=== PATIENT | female | born 1955 | race Caucasian/White ===

== ENCOUNTER 2016-10-29 12:11 | Outpatient (CLI) | payer BC | END 2016-10-29 23:59 | DX: R10.11 Right upper quadrant pain (principal); R11.0 Nausea ==

== ENCOUNTER 2016-10-30 18:59 | Outpatient (CLI) | payer BC | END 2016-10-30 19:00 | disposition home or self-care (01) | DX: R10.11 Right upper quadrant pain (principal) ==

== ENCOUNTER 2017-02-25 12:09 | Outpatient (CLI) | payer BC ==
[2017-02-25 14:28] LABS: BASOPHILS % (AUTO) 0.6 %; EOSINOPHILS # (AUTO) 0.4 10^3/uL (0.0-0.7); EOSINOPHILS % (AUTO) 7.8 %; HCT - HEMATOCRIT 38.9 % (37.0-47.0); HGB - HEMOGLOBIN 13.2 g/dL (12.0-16.0); LYMPHOCYTES # (AUTO) 2.1 10^3/uL (1.5-3.5); LYMPHOCYTES % (AUTO) 36.2 %; MEAN CORPUSCULAR HEMOGLOBIN 33.1 pg (27.0-31.0); MEAN CORPUSCULAR HGB CONC 33.9 g/dL (32.0-36.0); MEAN CORPUSCULAR VOLUME 97.7 fL (81.0-99.0); MEAN PLATELET VOLUME 7.3 fL (7.9-10.8); MONOCYTES # (AUTO) 0.5 10^3/uL (0.0-1.0); MONOCYTES % (AUTO) 8.7 %; NEUTROPHILS # (AUTO) 2.7 10^3/uL (1.5-6.6); NEUTROPHILS % (AUTO) 46.7 %; RED BLOOD COUNT 3.99 10^6/uL (4.20-5.40); RED CELL DISTRIBUTION WIDTH 13.2 % (12.0-15.0); UNCORRECTED WHITE BLOOD COUNT 5.7 x10^3/uL; WHITE BLOOD COUNT 5.7 x10^3/uL (4.8-10.8)
[2017-02-25 14:45] LABS: ALBUMIN/GLOBULIN RATIO 1.5 (1.0-2.2); BILIRUBIN,TOTAL 0.6 mg/dL (0.2-1.0); BUN - BLOOD UREA NITROGEN 22 mg/dL (6-20); CALCIUM 8.8 mg/dL (8.5-10.3); CARBON DIOXIDE - CO2 25 mmol/L (21-32); CHLORIDE 107 mmol/L (101-111); CREATININE 0.8 mg/dL (0.4-1.0); GFR - MDRD 73 (>89); GLUCOSE 139 mg/dL (70-100); POTASSIUM 3.7 mmol/L (3.5-5.0); SODIUM 140 mmol/L (135-145)
== END 2017-02-25 12:10 | disposition home or self-care (01) ==
LOC: LAB.R 12:09
PROVIDERS: ATTEND Physician Assistant Medical
DX: M79.1 Myalgia (principal); Z79.899 Other long term (current) drug therapy
CPT/HCPCS: 80053; 82550; 85025; 85651; 86140

== ENCOUNTER 2017-02-25 12:23 | Outpatient (CLI) | payer BC ==
--- NOTE | 2017-02-25 15:30 | XRAY Report ---
LEFT HIP AND PELVIS: 02/25/2017 CLINICAL INDICATION: Pain. FINDINGS: Frontal view of the hips and pelvis and frogleg lateral view of the left hip demonstrate n o evidence of fracture or dislocation. Mild left hip osteoarthritis is present. No radiopaque foreign body is seen in the soft tissues. IMPRESSION: MILD LEFT HIP OSTEOARTHRITIS. JOB #: [id number] EXT JOB #:[id number]
== END 2017-02-25 12:24 | disposition home or self-care (01) ==
LOC: DI 12:23
PROVIDERS: ATTEND Physician Assistant Medical
DX: M16.12 Unilateral primary osteoarthritis, left hip (principal); M79.1 Myalgia; Z79.899 Other long term (current) drug therapy
CPT/HCPCS: 80053; 82550; 85025; 85651; 86140

== ENCOUNTER 2017-08-11 15:12 | Outpatient (CLI) | payer BC ==
[2017-08-11 15:54] LABS: ALBUMIN/GLOBULIN RATIO 1.4 (1.0-2.2); BILIRUBIN,TOTAL 0.5 mg/dL (0.2-1.0); BUN - BLOOD UREA NITROGEN 22 mg/dL (6-20); CALCIUM 9.1 mg/dL (8.5-10.3); CARBON DIOXIDE - CO2 24 mmol/L (21-32); CHLORIDE 104 mmol/L (101-111); CHOL/HDL RATIO 3.2 (<4.4); CHOLESTEROL 191 mg/dL; CREATININE 0.7 mg/dL (0.4-1.0); GFR - MDRD 85 (>89); GLUCOSE 115 mg/dL (70-100); HDL CHOLESTEROL 60 mg/dL; LDL/HDL RATIO 1.6 (<4.4); POTASSIUM 3.9 mmol/L (3.5-5.0); SODIUM 138 mmol/L (135-145); TRIGLYCERIDES 192 mg/dL; VLDL CHOLESTEROL 38 mg/dL
[2017-08-11 15:59] LABS: BASOPHILS % (AUTO) 0.4 %; EOSINOPHILS # (AUTO) 0.2 10^3/uL (0.0-0.7); EOSINOPHILS % (AUTO) 3.4 %; HCT - HEMATOCRIT 38.3 % (37.0-47.0); HGB - HEMOGLOBIN 13.4 g/dL (12.0-16.0); LYMPHOCYTES # (AUTO) 2.5 10^3/uL (1.5-3.5); LYMPHOCYTES % (AUTO) 37.2 %; MEAN CORPUSCULAR HEMOGLOBIN 33.7 pg (27.0-31.0); MEAN CORPUSCULAR VOLUME 96.2 fL (81.0-99.0); MEAN PLATELET VOLUME 6.7 fL (7.9-10.8); MONOCYTES # (AUTO) 0.6 10^3/uL (0.0-1.0); MONOCYTES % (AUTO) 8.7 %; NEUTROPHILS # (AUTO) 3.4 10^3/uL (1.5-6.6); NEUTROPHILS % (AUTO) 50.3 %; NUCLEATED RED BLOOD CELLS AUTO 0.1 /100WBC; RED BLOOD COUNT 3.99 10^6/uL (4.20-5.40); RED CELL DISTRIBUTION WIDTH 12.9 % (12.0-15.0); UNCORRECTED WHITE BLOOD COUNT 6.7 x10^3/uL; WHITE BLOOD COUNT 6.7 x10^3/uL (4.8-10.8)
== END 2017-08-11 15:13 | disposition home or self-care (01) ==
LOC: LAB 15:12
PROVIDERS: ATTEND Physician Assistant Medical
DX: Z00.00 Encounter for general adult medical examination without abnormal findings (principal); E55.9 Vitamin D deficiency, unspecified; Z79.899 Other long term (current) drug therapy
CPT/HCPCS: 36415; 80053; 80061; 82306; 84443; 85025

== ENCOUNTER 2017-08-14 08:14 | Outpatient (CLI) | payer BC ==
--- NOTE | 2017-08-14 16:42 | Nuclear Medicine Report ---
EXAM: BONE SCAN EXAM DATE: 08/14/2017 01:57 PM. CLINICAL HISTORY: Pain in ribs, breast cancer/osteopenia. COMPARISON: Chest with bilateral rib views, 07/01/2017. Pelvic x-rays 02/25/2017. TECHNIQUE: Following the intravenous administration of 31.2 mCi of technetium 99m MDP and an appropri ate delay, a whole-body scan was performed in anterior and posterior projections. Site-specific spot views of the region of interest were obtained in various projections. FINDINGS: Exam Quality: Normal overall osseous radiotracer uptake. Physiological tracer uptake in bilateral col lecting systems. Skull: No focal uptake. Thorax: No focal lesions in ribs or sternum. Pelvis: No focal lesions. Spine: Moderately increased tracer uptake in the L3-L4 endplates suggestive of osteoarthritis, visibl e on the pelvic x-ray of 02/25/2017. Minimally increased tracer uptake in both knees consistent with osteoarthritis. IMPRESSION: 1. No foci of abnormal tracer uptake to suggest metastatic disease. 2. 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 [facility] Referring Provider Line: [phone] SITE ID: [id number]
--- NOTE | 2017-08-19 08:38 | DEXA Report ---
DEXA SCAN : 08/14/2017 HISTORY: Breast cancer, on anti-estrogen therapy. TECHNIQUE: Dual energy x-ray absorptiometry (DXA) was performed on a [employer] system. Regions measured are the AP spine, femoral neck, and, if needed, forearm. COMPARISON: [None]. In accordance with the International Society for Clinical Densitometry (ISCD) guidelines, data from previous exams may be reanalyzed using current recommendations and techniques. This is done to allow a more accurate basis for comparison with the current study. FINDINGS: The data for the lumbar spine is as follows: REGION BMD (g/cm/cm) T-SCORE Z-SCORE L1 1.045 -0.7 0.4 L2 1.052 -1.2 -0.2 L3 1.226 0.2 1.3 L4 1.206 0.0 1.1 TOTAL 1.139 -0.3 0.7 NOTE: All evaluable vertebrae are used for classification. The data for the hip is as follows: REGION BMD (g/cm/cm) T-SCORE Z-SCORE Neck 1.038 0.0 1.1 TOTAL 1.033 0.2 1.0 NOTE: The femoral neck or total proximal femur, whichever is lowest, is used for classification. IMPRESSION: THE WHO CLASSIFICATION BASED ON THE INTERNATIONAL REFERENCE STANDARD: NORMAL FRACTURE RISK: NOT INCREASED. RECOMMENDATION: Patients with diagnosis of osteoporosis or osteopenia should have regular bone mineral density assessment. For those eligible for Medicare, routine testing is allowed once every 2 years. Testing frequency can be increased for patients who have rapidly progressing disease or for those who are receiving medical therapy to restore bone mass. COMMENT: World Health Organization (WHO) definitions for osteoporosis and osteopenia: NORMAL BMD: T-score at -1.0 or higher, fracture risk is low. OSTEOPENIA BMD: T-score between -1.0 and -2.5, fracture risk is increased. OSTEOPOROSIS BMD: T-score at -2.5 or lower, fracture risk high. National Osteoporosis Foundation recommends: 1. Obtain adequate dietary calcium (at least 1200 mg per day) and vitamin D (400 -800 international units per day). 2. Participate, as appropriate, in regular weight bearing and muscle- strengthening exercise. 3. Avoid tobacco use and reduce alcohol and caffeine intake. 4. For more detailed information see the website at www.NOF.org. MTDD
== END 2017-08-14 08:15 | disposition home or self-care (01) ==
LOC: DI 08:14
PROVIDERS: ATTEND Internal Medicine Hematology & Oncology
DX: R07.81 Pleurodynia (principal); M85.80 Other specified disorders of bone density and structure, unspecified site; Z79.899 Other long term (current) drug therapy; C50.911 Malignant neoplasm of unspecified site of right female breast
CPT/HCPCS: 77080; 78306; A9503

== ENCOUNTER 2017-09-04 08:00 | Outpatient (CLI) | payer BC | END 2017-09-04 08:01 | disposition home or self-care (01) | LOC: LAB.R 08:00 | PROVIDERS: ATTEND Internal Medicine | DX: R35.0 Frequency of micturition (principal) | CPT/HCPCS: 87086 ==

== ENCOUNTER 2017-09-09 06:12 | Outpatient (CLI) | payer BC ==
[2017-09-09] MEDS ORDERED: IOPAMIDOL-300 100 ML VIAL ONE (06:28)
[2017-09-09] MEDS ORDERED: IOPAMIDOL-300 50 ML VIAL ONE (06:29)
[2017-09-09] MEDS ORDERED: IOPAMIDOL-300 100 ML VIAL IVP ONE (07:55)
[2017-09-09] MEDS ORDERED: IOPAMIDOL-300 50 ML VIAL PO ONE (07:55)
--- NOTE | 2017-09-09 12:14 | CT Report ---
DATE OF SERVICE: 09/09/2017 CT OF ABDOMEN AND PELVIS WITH AND WITHOUT CONTRAST: 09/09/2017 CLINICAL INDICATION: Pain, urinary frequency. TECHNIQUE: Axial CT images of the abdomen and pelvis were obtained prior to and following 100 mL Isovue 300 intravenously. Oral contrast was administered. No previous CT is available for comparison. FINDINGS: Limited evaluation of the lung bases is unremarkable. ABDOMEN: On the unenhanced images, there is no evidence of nephrolithiasis or hydronephrosis. The kidneys demonstrate symmetric enhancement. The liver, spleen, pancreas and adrenal glands are unremarkable. The gallbladder is not dilated. No bowel dilatation, free gas, or free fluid is present. No abdominal adenopathy is present. PELVIS: The pelvic organs appear unremarkable. No pelvic adenopathy or free fluid is present. Osseous structures demonstrate mild degenerative changes. IMPRESSION: NO EVIDENT ETIOLOGY FOR PATIENT'S PAIN AND URINARY FREQUENCY. In accordance with CT protocol optimization, one or more of the following dose reduction techniques were utilized for this exam: automated exposure control, adjustment of mA and/or KV based on patient size, or use of iterative reconstructive technique. TD: 09/09/2017 13:14
== END 2017-09-09 06:13 | disposition home or self-care (01) ==
LOC: DI 06:12
PROVIDERS: ATTEND Internal Medicine
DX: R35.0 Frequency of micturition (principal); R10.9 Unspecified abdominal pain
CPT/HCPCS: 74178; Q9967

== ENCOUNTER 2018-02-03 08:00 | Outpatient (CLI) | payer BC | END 2018-02-03 08:01 | disposition home or self-care (01) | LOC: LAB.R 08:00 | PROVIDERS: ATTEND Physician Assistant Medical | DX: N30.00 Acute cystitis without hematuria (principal) | CPT/HCPCS: 87086; 87181 ==

== ENCOUNTER 2018-02-26 09:14 | Outpatient (CLI) | payer BC ==
--- NOTE | 2018-02-26 13:06 | Ultrasound Report ---
Procedure Date: 02/26/2018 Accession Number: [id number] / [id number] Procedure: US - Pelvic w/Transvaginal CPT Code: FULL RESULT: EXAM: Pelvic w/Transvaginal DATE: 02/26/2018 10:43 AM CLINICAL HISTORY: ACUTE FEMALE PELVIC PAIN COMPARISON: CT 09/09/2017 TECHNIQUE: Realtime transabdominal imaging performed to identify the uterus and adnexa and as an overview of other pelvic structures, followed by transvaginal imaging for better assessment of the endometrium and/or adnexa, with static image documentation. FINDINGS: Uterus: 7.2 x 4.3 x 3.2 cm, volume 52 cc. Retroverted position. Heterogeneous myometrium. Masses: 1.8 cm leiomyoma in the left myometrium. Endometrium: 8 mm. Heterogeneous. Thickened for a postmenopausal patient. Cervix: Unremarkable. Right Ovary/Adnexa: 2.3 x 2.0 x 1.6 cm, volume 4 cc. Normal echotexture. Blood flow is present. No adnexal mass is seen. Left Ovary/Adnexa: 2.3 x 1.7 x 1.1 cm, volume 2 cc. Normal echotexture. Blood flow is present. No adnexal mass is seen. Free Fluid: None. Other: None. IMPRESSION: Leiomyomatous uterus. Thickened endometrium for a postmenopausal patient. [facility]
== END 2018-02-26 09:15 | disposition home or self-care (01) ==
LOC: DI 09:14
PROVIDERS: ATTEND Physician Assistant Medical
DX: D25.9 Leiomyoma of uterus, unspecified (principal); R93.8 Abnormal findings on diagnostic imaging of other specified body structures
CPT/HCPCS: 76830; 76856

== ENCOUNTER 2018-03-24 08:00 | Outpatient (CLI) | payer BC | END 2018-03-24 08:01 | disposition home or self-care (01) | LOC: LAB.R 08:00 | PROVIDERS: ATTEND Internal Medicine | DX: R19.7 Diarrhea, unspecified (principal) | CPT/HCPCS: 81599; 82705; 83630; 87045; 87046; 87177; 87209; 87329; 87493 ==

== ENCOUNTER 2018-08-02 07:29 | Outpatient (CLI) | payer BC ==
[2018-08-02 08:08] LABS: BASOPHILS % (AUTO) 0.6 %; EOSINOPHILS # (AUTO) 0.2 10^3/uL (0.0-0.7); EOSINOPHILS % (AUTO) 5.3 %; HGB - HEMOGLOBIN 13.7 g/dL (12.0-16.0); LYMPHOCYTES # (AUTO) 1.9 10^3/uL (1.5-3.5); LYMPHOCYTES % (AUTO) 41.9 %; MEAN CORPUSCULAR HEMOGLOBIN 33.8 pg (27.0-31.0); MEAN CORPUSCULAR HGB CONC 35.1 g/dL (32.0-36.0); MEAN CORPUSCULAR VOLUME 96.2 fL (81.0-99.0); MEAN PLATELET VOLUME 6.6 fL (7.9-10.8); MONOCYTES # (AUTO) 0.5 10^3/uL (0.0-1.0); MONOCYTES % (AUTO) 10.6 %; NEUTROPHILS # (AUTO) 1.9 10^3/uL (1.5-6.6); NEUTROPHILS % (AUTO) 41.6 %; PLT - PLATELET COUNT 269 10^3/uL (130-450); RED BLOOD COUNT 4.05 10^6/uL (4.20-5.40); RED CELL DISTRIBUTION WIDTH 12.6 % (12.0-15.0); WHITE BLOOD COUNT 4.5 x10^3/uL (4.8-10.8)
[2018-08-02 08:09] LABS: ALBUMIN 4.3 g/dL (3.2-5.5); ALBUMIN/GLOBULIN RATIO 1.4 (1.0-2.2); ALKALINE PHOSPHATASE 64 IU/L (42-121); ALT ALANINE AMINOTRANSFERASE 15 IU/L (10-60); AST ASPARTATE AMINOTRANSFERASE 18 IU/L (10-42); BILIRUBIN,TOTAL 0.7 mg/dL (0.2-1.0); BUN - BLOOD UREA NITROGEN 18 mg/dL (6-20); CARBON DIOXIDE - CO2 29 mmol/L (21-32); CHLORIDE 103 mmol/L (101-111); CHOL/HDL RATIO 4.3 (<4.4); CHOLESTEROL 244 mg/dL; CREATININE 0.7 mg/dL (0.4-1.0); GFR - MDRD 85 (>89); GLUCOSE 102 mg/dL (70-100); HDL CHOLESTEROL 57 mg/dL; LDL CHOLESTEROL,CALCULATED 163 mg/dL; LDL/HDL RATIO 2.9 (<4.4); SODIUM 135 mmol/L (135-145); TOTAL PROTEIN 7.4 g/dL (6.7-8.2); VLDL CHOLESTEROL 24 mg/dL
== END 2018-08-02 07:30 | disposition home or self-care (01) ==
LOC: LAB 07:29
PROVIDERS: ATTEND Physician Assistant Medical
DX: Z00.00 Encounter for general adult medical examination without abnormal findings (principal)
CPT/HCPCS: 36415; 80053; 80061; 83721; 84443; 85025

== ENCOUNTER 2018-08-02 13:15 | Outpatient (CLI) | payer BC | END 2018-08-02 13:16 | disposition home or self-care (01) | LOC: SC 13:15 | PROVIDERS: ATTEND Internal Medicine Pulmonary Disease | DX: G47.33 Obstructive sleep apnea (adult) (pediatric) (principal) | CPT/HCPCS: 99212; 99213 ==

== ENCOUNTER 2018-08-10 11:56 | Outpatient (CLI) | payer BC ==
--- NOTE | 2018-08-11 01:25 | CT Report ---
Reason: HEADACHE,NAUSEA,HISTORY OF BREAST CANCER Procedure Date: 08/10/2018 Accession Number: [id number] / [id number] Procedure: CT - Head W/O CPT Code: FULL RESULT: EXAM: CT HEAD EXAM DATE: 08/10/2018 12:17 PM. CLINICAL HISTORY: Headache, nausea, history of breast cancer. COMPARISON: SINUSES 01/09/2014 6:11 PM, HEAD W/O 01/09/2014 6:09 PM. TECHNIQUE: Multiaxial CT images were obtained from the foramen magnum to the vertex. Reformats: Sagittal and coronal. IV contrast: None. In accordance with CT protocol optimization, one or more of the following dose reduction techniques were utilized for this exam: automated exposure control, adjustment of mA and/or KV based on patient size, or use of iterative reconstructive technique. FINDINGS: Parenchyma: No intraparenchymal hemorrhage. No evidence of mass, midline shift or CT findings of acute infarction. Seals-white differentiation is distinct. Diffuse mild chronic microangiopathic white matter changes are evident. Extraaxial Spaces: Normal for age. No subdural or epidural collections identified. Ventricles: The ventricles and cortical sulci are enlarged, consistent with age-related tissue loss. Sinuses: Imaged paranasal sinuses, orbits, and mastoids show no significant abnormality with exception of pansinus mild mucosal thickening and evidence of prior sinus surgery. Bones: No evidence of fracture or calvarial defect. Other: None. IMPRESSION: 1. Mild senescent changes without evidence of acute intracranial abnormality. 2. Chronic appearing pansinus disease. [facility]
== END 2018-08-10 11:57 | disposition home or self-care (01) ==
LOC: DI 11:56
PROVIDERS: ATTEND Physician Assistant Medical
DX: J32.4 Chronic pansinusitis (principal); R51 Headache
CPT/HCPCS: 70450

== ENCOUNTER 2018-08-26 16:50 | Outpatient (CLI) | payer BC ==
[2018-08-26 17:50] LABS: BASOPHILS % (AUTO) 0.7 %; BILIRUBIN,URINE NEGATIVE (NEGATIVE); EOSINOPHILS # (AUTO) 0.2 10^3/uL (0.0-0.7); GLUCOSE, URINE (UA) NEGATIVE (NEGATIVE); HGB - HEMOGLOBIN 13.4 g/dL (12.0-16.0); KETONES,URINE (UA) NEGATIVE (NEGATIVE); LEUKOCYTE ESTERASE, URINE NEGATIVE (NEGATIVE); LYMPHOCYTES # (AUTO) 2.4 10^3/uL (1.5-3.5); LYMPHOCYTES % (AUTO) 40.3 %; MEAN CORPUSCULAR HEMOGLOBIN 33.1 pg (27.0-31.0); MEAN CORPUSCULAR HGB CONC 33.7 g/dL (32.0-36.0); MEAN CORPUSCULAR VOLUME 98.2 fL (81.0-99.0); MEAN PLATELET VOLUME 6.4 fL (7.9-10.8); MONOCYTES # (AUTO) 0.6 10^3/uL (0.0-1.0); MONOCYTES % (AUTO) 9.6 %; NEUTROPHILS # (AUTO) 2.8 10^3/uL (1.5-6.6); NEUTROPHILS % (AUTO) 46.4 %; NITRITE,URINE NEGATIVE (NEGATIVE); OCCULT BLOOD,URINE NEGATIVE (NEGATIVE); PLT - PLATELET COUNT 294 10^3/uL (130-450); PROTEIN,URINE NEGATIVE (NEGATIVE); RED BLOOD COUNT 4.06 10^6/uL (4.20-5.40); RED CELL DISTRIBUTION WIDTH 12.6 % (12.0-15.0); UROBILINOGEN,URINE 0.2 (NORMAL) E.U./dL (NORMAL)
[2018-08-26 18:17] LABS: BACTERIA,URINE Rare /HPF (None Seen); CLARITY,URINE CLEAR (CLEAR); RBC,URINE 0-5 /HPF (0-5); SQUAMOUS EPITHELIAL CELL,UR RARE Squamous (<= Few)
[2018-08-26 21:30] LABS: RHEUMATOID FACTOR NEGATIVE (Negative)
--- NOTE | 2018-08-27 07:26 | XRAY Report ---
Reason: DYSPNEA Procedure Date: 08/26/2018 Accession Number: [id number] / [id number] Procedure: XR - Chest 2 View X-Ray CPT Code: 49925 FULL RESULT: EXAM: CHEST RADIOGRAPHY EXAM DATE: 08/26/2018 05:06 PM. CLINICAL HISTORY: DYSPNEA. COMPARISON: None. TECHNIQUE: 2 views. FINDINGS: Lungs/Pleura: No focal opacities evident. No pleural effusion. No pneumothorax. Normal volumes. Mediastinum: Heart and mediastinal contours are unremarkable. IMPRESSION: Negative 2-view chest radiography. [facility]
[2018-08-28 11:42] LABS: ANA SCREEN NEGATIVE (NEGATIVE)
== END 2018-08-26 16:51 | disposition home or self-care (01) ==
LOC: DI 16:50
PROVIDERS: ATTEND Physician Assistant Medical
DX: R06.00 Dyspnea, unspecified (principal); M25.50 Pain in unspecified joint; R53.83 Other fatigue; M79.10 Myalgia, unspecified site; R11.0 Nausea
CPT/HCPCS: 36415; 71046; 81001; 85025; 85651; 86038; 86140; 86200; 86430; 87086

== ENCOUNTER 2018-09-28 08:00 | Outpatient (CLI) | payer BC | END 2018-09-28 23:59 | disposition home or self-care (01) | LOC: LAB.R 08:00 | PROVIDERS: ATTEND Physician Assistant Medical | DX: N30.00 Acute cystitis without hematuria (principal) | CPT/HCPCS: 87086 ==

== ENCOUNTER 2018-10-05 14:24 | Outpatient (CLI) | payer BC | END 2018-10-05 14:25 | disposition home or self-care (01) | LOC: SC 14:24 | PROVIDERS: ATTEND Internal Medicine Pulmonary Disease | DX: G47.33 Obstructive sleep apnea (adult) (pediatric) (principal) | CPT/HCPCS: 99212; 99213 ==

== ENCOUNTER 2019-06-29 08:36 | Day surgery (SDC) | payer BC ==
[2019-06-29] MEDS ORDERED: MIDAZOLAM 2 MG/2 ML VIAL IVP ONE (08:37)
[2019-06-29] MEDS ORDERED: fentaNYL 250 MCG/5 ML VIAL IVP ONE (08:37)
[2019-06-29] MEDS ORDERED: LACTATED RINGERS 1,000 ML IV ONE (08:41)
[2019-06-29] MEDS ORDERED: LIDO GARGLE 30 ML BOTTLE ONE (10:13)
[2019-06-29] MEDS ORDERED: BENZOCAINE/TETRACAINE/BUTAMBEN 20 GM MM ONE (10:27)
[2019-06-29] MEDS ORDERED: LIDO GARGLE 30 ML BOTTLE PO ONE (10:46)
[2019-06-29 11:58] VITALS: BP 90/60
== END 2019-06-29 08:37 | disposition home or self-care (01) ==
LOC: SDS 08:36
PROVIDERS: ATTEND Surgery
PROC: 0DB78ZX Excision of Stomach, Pylorus, Via Natural or Artificial Opening Endoscopic, Diagnostic (ICD-10-PCS; 2019-06-29)
PROC: 0DB48ZX Excision of Esophagogastric Junction, Via Natural or Artificial Opening Endoscopic, Diagnostic (ICD-10-PCS; 2019-06-29)
PROC: 0DJD8ZZ Inspection of Lower Intestinal Tract, Via Natural or Artificial Opening Endoscopic (ICD-10-PCS; principal; 2019-06-29 10:30)
PROC: 0DB98ZX Excision of Duodenum, Via Natural or Artificial Opening Endoscopic, Diagnostic (ICD-10-PCS; 2019-06-29 10:30)
DX: Z12.11 Encounter for screening for malignant neoplasm of colon (principal); K57.30 Diverticulosis of large intestine without perforation or abscess without bleeding; K64.8 Other hemorrhoids; K21.9 Gastro-esophageal reflux disease without esophagitis; K29.50 Unspecified chronic gastritis without bleeding; K44.9 Diaphragmatic hernia without obstruction or gangrene; Z85.3 Personal history of malignant neoplasm of breast; G47.33 Obstructive sleep apnea (adult) (pediatric)
CPT/HCPCS: 43239; 45378; A9270; J3010; J7120

== ENCOUNTER 2019-08-17 08:12 | Outpatient (CLI) | payer BC ==
--- NOTE | 2019-08-17 12:31 | DEXA Report ---
Reason: POSTMENOPAUSAL Procedure Date: 08/17/2019 Accession Number: [id number] / [id number] Procedure: DEX - Dexa Spine and/or Hip CPT Code: Final Report FULL RESULT: EXAM: Dexa Spine and/or Hip DATE: 08/17/2019 8:31 AM CLINICAL HISTORY: POSTMENOPAUSAL. History of breast cancer with tamoxifen use and chemotherapy. History of prednisone use. TECHNIQUE: Dual energy x-ray absorptiometry (DXA) was performed on a [employer] System. Regions measured are the AP Spine, femoral neck, and if needed forearm. COMPARISON: 08/14/2017 In accordance with the International Society for Clinical Densitometry (ISCD) guidelines, data from previous exams may be reanalyzed using current recommendations and techniques. This is done to allow a more accurate basis for comparison with the current study. FINDINGS: The data for the lumbar spine is as follows: BMD (g/cm/cm) T-SCORE Z-SCORE REGION L1 1.053 -0.6 0.6 L2 1.053 -1.2 0.0 L3 1.433 1.9 3.2 L4 1.450 2.1 3.3 TOTAL 1.264 0.7 1.9 NOTE: All evaluable vertebrae are used for classification The data for the hip is as follows: BMD (g/cm/cm) T-SCORE Z-SCORE REGION Neck 0.994 -0.3 0.9 TOTAL 1.012 0.0 1.0 NOTE: The femoral neck or total proximal femur, whichever is lowest, is used for classification. DXA RESULTS SUMMARY: Spine SCAN DATE AGE BMD CHANGE VS CHANGE VS PREVIOUS PREVIOUS % 08[age]17/2019 64.3 1.264 0.125* 11.0* 08/14/2017 62.3 1.139 * Denotes significant change at the 95% confidence level. Denotes dissimilar scan types or analysis methods. DXA RESULTS SUMMARY: Hip SCAN DATE AGE BMD CHANGE VS CHANGE VS PREVIOUS PREVIOUS % [birth year][age]17/2019 64.3 1.012 -0.021 -2.0 08/14/2017 62.3 1.033 * Denotes significant change at the 95% confidence level. Denotes dissimilar scan types or analysis methods. IMPRESSION: THE WHO CLASSIFICATION BASED ON THE INTERNATIONAL REFERENCE STANDARD IS NORMAL. THE FRACTURE RISK IS NOT INCREASED. RECOMMENDATION: Patients with diagnosis of osteoporosis or osteopenia should have regular bone mineral density assessment. For those eligible for Medicare, routine testing is allowed once every 2 years. Testing frequency can be increased for patients who have rapidly progressing disease or for those who are receiving medical therapy to restore bone mass. COMMENT: World Health Organization (WHO) definitions for osteoporosis and osteopenia: NORMAL BMD: T-score at -1.0 or higher, fracture risk is low OSTEOPENIA BMD: T-score between -1.0 and -2.5, fracture risk is increased. OSTEOPOROSIS BMD: T-score at -2.5 or lower, fracture risk is high. National Osteoporosis Foundation recommends: 1. Obtain adequate dietary calcium (at least 1200 mg per day) and vitamin D (400-800 international units per day). 2. Participate, as appropriate, in regular weightbearing and muscle-strengthening exercise. 3. Avoid tobacco use and reduce alcohol and caffeine intake. 4. For more detailed information see the website at www.NOF.org.
== END 2019-08-17 08:13 | disposition home or self-care (01) ==
LOC: DI 08:12
PROVIDERS: ATTEND Internal Medicine Hematology & Oncology
DX: Z78.0 Asymptomatic menopausal state (principal); C50.912 Malignant neoplasm of unspecified site of left female breast
CPT/HCPCS: 77080

== ENCOUNTER 2019-09-13 17:56 | Outpatient (CLI) | payer BC ==
[2019-09-13 18:33] LABS: BASOPHILS % (AUTO) 0.5 %; EOSINOPHILS # (AUTO) 0.2 10^3/uL (0.0-0.7); EOSINOPHILS % (AUTO) 3.9 %; HGB - HEMOGLOBIN 13.4 g/dL (12.0-16.0); LYMPHOCYTES # (AUTO) 2.4 10^3/uL (1.5-3.5); LYMPHOCYTES % (AUTO) 42.4 %; MEAN CORPUSCULAR HEMOGLOBIN 32.8 pg (27.0-31.0); MEAN CORPUSCULAR HGB CONC 33.7 g/dL (32.0-36.0); MEAN CORPUSCULAR VOLUME 97.3 fL (81.0-99.0); MEAN PLATELET VOLUME 8.5 fL (7.9-10.8); MONOCYTES # (AUTO) 0.8 10^3/uL (0.0-1.0); MONOCYTES % (AUTO) 13.4 %; NEUTROPHILS # (AUTO) 2.2 10^3/uL (1.5-6.6); NEUTROPHILS % (AUTO) 39.3 %; PLT - PLATELET COUNT 268 10^3/uL (130-450); RED BLOOD COUNT 4.09 10^6/uL (4.20-5.40); RED CELL DISTRIBUTION WIDTH 12.4 % (12.0-15.0); WHITE BLOOD COUNT 5.7 x10^3/uL (4.8-10.8)
[2019-09-13 18:42] LABS: CALCIUM 9.3 mg/dL (8.5-10.3)
--- NOTE | 2019-09-13 20:43 | XRAY Report ---
Reason: COUGH, CHRONIC, CHEST WALL PAIN Procedure Date: 09/13/2019 Accession Number: [id number] / [id number] Procedure: XR - Chest 2 View X-Ray CPT Code: 12425 Final Report FULL RESULT: EXAM: CHEST RADIOGRAPHY EXAM DATE: 09/13/2019 06:47 PM. CLINICAL HISTORY: COUGH, CHRONIC, CHEST WALL PAIN. COMPARISON: CHEST 2 VIEW 08/26/2018 5:05 PM. TECHNIQUE: 2 views. FINDINGS: Lungs/Pleura: No focal opacities evident. No peribronchial cuffing or interstitial abnormality. No pleural effusion. No pneumothorax. Normal volumes. Mediastinum: Heart and mediastinal contours are unremarkable. Other: Bilateral breast implants. Left breast surgical clips, as before. IMPRESSION: Normal 2-view chest radiography. [facility]
== END 2019-09-13 17:57 | disposition home or self-care (01) ==
LOC: DI 17:56
PROVIDERS: ATTEND Family Medicine
DX: R05 Cough (principal); R07.89 Other chest pain
CPT/HCPCS: 36415; 71046; 80048; 85025

== ENCOUNTER 2019-10-20 09:42 | Outpatient (CLI) | payer BC ==
--- NOTE | 2019-10-20 13:30 | MRI Report ---
Reason: HEADACHE Procedure Date: 10/20/2019 Accession Number: [id number] / [id number] Procedure: MRI - Brain W/O CPT Code: Final Report FULL RESULT: EXAM: MRI BRAIN WITHOUT CONTRAST EXAM DATE: 10/20/2019 11:05 AM. CLINICAL HISTORY: Headache. History of breast cancer. COMPARISON: BRAIN W/WO 04/03/2016 9:00 AM. TECHNIQUE: Multiplanar, multisequence T1-weighted and fluid-sensitive MR sequences of the brain were performed. Sequences optimized for routine evaluation. Other: None. IV Contrast: None. FINDINGS: Brain Volume: Normal for age. Parenchyma/Dura: No mass, acute infarct or hemorrhage. Again seen are findings of numerous scattered patchy and nodular foci of white matter T2 hyperintensity in the cerebral hemispheres, findings are similar to prior, likely secondary to aging and chronic small vessel ischemic disease. Postinflammatory gliosis might also be considered. Given gross stability, a new or progressive neoplastic process is considered less likely though complete evaluation with MRI could include evaluation post contrast. No mass-effect, midline shift or abnormal subdural fluid collection. Ventricles/Cisterns: No hydrocephalus. No abnormal extra-axial fluid collection or hemorrhage. Orbits: Symmetric and unremarkable. Sella Turcica: No developing space-occupying lesion. IAC: Grossly symmetric and unremarkable contours of the internal auditory canals allowing for the inherent limitations of noncontrast imaging technique. Vasculature: The major arterial skull base flow voids are present. Sinuses: Mild pansinus mucosal thickening. Significantly less prominent left maxillary sinus mucosal thickening. The mastoids are grossly clear. Bones: No focal pathologic appearing marrow signal changes. Other: None. IMPRESSION: 1. No new or acute intracranial abnormality. 2. Essentially stable moderate multifocal white matter disease, T2 hyperintense signal changes are nonspecific but likely attributable to aging and chronic microangiopathy. 3. Mild pansinus mucosal thickening but the left maxillary sinus mucosal thickening has improved. [facility]
== END 2019-10-20 09:43 | disposition home or self-care (01) ==
LOC: DI 09:42
PROVIDERS: ATTEND Internal Medicine Hematology & Oncology
DX: R51 Headache (principal); R90.82 White matter disease, unspecified; J34.89 Other specified disorders of nose and nasal sinuses; Z85.3 Personal history of malignant neoplasm of breast
CPT/HCPCS: 70551

== ENCOUNTER 2020-03-09 10:47 | Outpatient (CLI) | payer BC ==
[2020-03-09 11:03] LABS: BASOPHILS % (AUTO) 0.7 %; EOSINOPHILS # (AUTO) 0.2 10^3/uL (0.0-0.7); EOSINOPHILS % (AUTO) 4.4 %; LYMPHOCYTES # (AUTO) 1.9 10^3/uL (1.5-3.5); LYMPHOCYTES % (AUTO) 34.7 %; MEAN CORPUSCULAR HGB CONC 33.3 g/dL (32.0-36.0); MEAN CORPUSCULAR VOLUME 99.1 fL (81.0-99.0); MEAN PLATELET VOLUME 8.5 fL (7.9-10.8); MONOCYTES # (AUTO) 0.4 10^3/uL (0.0-1.0); MONOCYTES % (AUTO) 7.1 %; NEUTROPHILS # (AUTO) 2.9 10^3/uL (1.5-6.6); NEUTROPHILS % (AUTO) 52.7 %; PLT - PLATELET COUNT 249 10^3/uL (130-450); RED BLOOD COUNT 4.24 10^6/uL (4.20-5.40); RED CELL DISTRIBUTION WIDTH 12.8 % (12.0-15.0); WHITE BLOOD COUNT 5.5 x10^3/uL (4.8-10.8)
[2020-03-09 11:28] LABS: ALBUMIN 4.5 g/dL (3.2-5.5); ALBUMIN/GLOBULIN RATIO 1.6 (1.0-2.2); BILIRUBIN,TOTAL 0.9 mg/dL (0.2-1.0); CALCIUM 9.6 mg/dL (8.5-10.3); CREATININE 0.8 mg/dL (0.4-1.0); TOTAL PROTEIN 7.3 g/dL (6.7-8.2)
[2020-03-09 11:39] LABS: FERRITIN 46.1 ng/mL (11.0-306.8)
== END 2020-03-09 10:48 | disposition home or self-care (01) ==
LOC: LAB 10:47
PROVIDERS: ATTEND Nurse Practitioner Family
DX: L29.8 Other pruritus (principal)
CPT/HCPCS: 36415; 80053; 82607; 82728; 83540; 84466; 85025

== ENCOUNTER 2020-06-19 17:07 | Outpatient (CLI) | payer MEDICARE, BC | END 2020-06-19 17:08 | disposition home or self-care (01) | LOC: COV 17:07 | PROVIDERS: ATTEND Family Medicine | DX: R06.02 Shortness of breath (principal); M79.10 Myalgia, unspecified site; R53.83 Other fatigue; R68.83 Chills (without fever); J02.9 Acute pharyngitis, unspecified; R09.81 Nasal congestion; R11.2 Nausea with vomiting, unspecified; Z20.828 Contact with and (suspected) exposure to other viral communicable diseases ==

== ENCOUNTER 2020-07-05 08:45 | Outpatient (CLI) | payer MEDICARE, OTHER ==
[2020-07-05] MEDS ORDERED: GADOBUTROL 7.5 MMOL/7.5 ML VIAL ONE (09:29)
[2020-07-05] MEDS ORDERED: GADOBUTROL 7.5 MMOL/7.5 ML VIAL IVP ONE (12:08)
--- NOTE | 2020-07-05 12:13 | MRI Report ---
PROCEDURE: Brain W/WO INDICATIONS: COGNITIVE DYSFUNCTION, HEADACHES, HX OF BREAST CA CONTRAST: IV CONTRAST: Gadavist ml: 7.5 TECHNIQUE: Noncontrast axial T1 spin echo, axial T2 fast spin echo, sagittal and axial FLAIR, coronal T2 fast sp in echo, axial gradient echo, axial diffusion and ADC through the brain. After the administration of contrast, axial and coronal T1 spin echo with fat saturation through the brain. COMPARISON: None. FINDINGS: Image quality: Excellent. CSF spaces: Basal cisterns are patent. No extra-axial fluid collections. Ventricles are normal in size and shape. Brain: No midline shift. No intracranial bleeds or masses. No abnormal intracranial enhancement. There is mild cerebral volume loss for age. There is mild periventricular white matter chronic small vessel ischemic change. The brainstem appears normal. Diffusion-weighted images demonstrate no acu te ischemic insults. No chronic ischemic insults. Normal intravascular flow voids are present. Dura l sinuses demonstrate normal postcontrast enhancement. Skull and face: Calvarial marrow is normal in signal. Orbits appear normal. Sinuses: Mucosal thickening noted in the maxillary sinuses bilaterally. Postsurgical changes compatib le prior functional endoscopic sinus surgery. The mastoids appear clear. IMPRESSION: 1. No acute intracranial disease process. 2. No evidence of metastatic disease. 3. Mild, diffuse cerebral volume loss. 4. Mild periventricular and subcortical white matter chronic microvascular ischemic change. Reviewed by: Melania Watson MD, PhD on 07/05/2020 12:12 PM PST Approved by: Melania Watson MD, PhD on 07/05/2020 12:12 PM [facility] Station ID: [id number]
== END 2020-07-05 08:46 | disposition home or self-care (01) ==
LOC: DI 08:45
PROVIDERS: ATTEND Psychiatry & Neurology Neurology
DX: F09 Unspecified mental disorder due to known physiological condition (principal); R51.9 Headache, unspecified; R42 Dizziness and giddiness; R20.2 Paresthesia of skin; H53.8 Other visual disturbances; Z85.3 Personal history of malignant neoplasm of breast; I67.82 Cerebral ischemia
CPT/HCPCS: 70553; A9585

== ENCOUNTER 2020-12-07 11:47 | Outpatient (CLI) | payer MEDICARE, OTHER ==
--- NOTE | 2020-12-07 16:01 | Ultrasound Report ---
PROCEDURE: Abdomen Limited INDICATIONS: RUQ PAIN TECHNIQUE: Real-time focused scanning was performed of the abdomen, with image documentation. COMPARISON: None FINDINGS: Liver is within normal limits. Gallbladder is grossly unremarkable. No biliary ductal dila tation. Pancreas is within normal limits as visualized with suboptimal dilation of the tail. Right ki dney is grossly unremarkable. IMPRESSION: Negative examination. Reviewed by: Ericka Watkins MD on 12/07/2020 4:00 PM PDT Approved by: Ericka Watkins MD on 12/07/2020 4:00 PM PDT Station ID: [id number]
== END 2020-12-07 11:48 | disposition home or self-care (01) ==
LOC: DI 11:47
PROVIDERS: ATTEND Internal Medicine Hematology & Oncology
DX: R10.11 Right upper quadrant pain (principal); N64.4 Mastodynia; Z98.82 Breast implant status; Z90.12 Acquired absence of left breast and nipple

== ENCOUNTER 2020-12-07 11:48 | Outpatient (CLI) | payer MEDICARE, OTHER ==
--- NOTE | 2020-12-10 12:22 | Ultrasound Report ---
LIMITED ULTRASOUND OF RIGHT BREAST: 12/07/2020 CLINICAL: Focal right breast pain. No prior exams were available for comparison. Color flow ultrasound of the right breast 9 o'clock, and retroareolar regions was performed. Seals sc tariq images of the real-time examination were reviewed. Right saline implant is present. No significant abnormalities were seen sonographically in the right breast. IMPRESSION: BENIGN There is no sonographic evidence of malignancy. There is no abnormality seen in the right breast to correspond with the pain, however, clinical corre lation is recommended. If symptoms persist or if there is clinical concern for recurrent malignancy, contrast-enhanced breast MRI could be performed for further evaluation. This exam was interpreted at Station ID: [id number]. Electronically Signed By: Sergio negron/julian:12/10/2020 12:03:39 Ultrasound BI-RADS: 2 Benign BI-RADS CATEGORY: (2) - 2 Unspecified - other recall n/a LATERALITY: (B)
== END 2020-12-07 11:49 | disposition home or self-care (01) ==
LOC: DI 11:48
PROVIDERS: ATTEND Internal Medicine Hematology & Oncology
DX: N64.4 Mastodynia (principal); Z98.82 Breast implant status; Z90.12 Acquired absence of left breast and nipple

== ENCOUNTER 2021-05-16 11:08 | Outpatient (CLI) | payer MEDICARE, OTHER ==
--- NOTE | 2021-05-16 15:19 | XRAY Report ---
PROCEDURE: Foot 3 View RT INDICATIONS: PAINFUL RT FOOT TECHNIQUE: 3 views of the foot were acquired. COMPARISON: None FINDINGS: Bones: No fractures or dislocations. No suspicious bony lesions. Scattered mild IP degenerative na rrowing. Soft tissues: No tibiotalar joint effusion. Achilles tendon appears normal. IMPRESSION: Scattered IP arthritic narrowing. Reviewed by: Jacqueline Chao MD on 05/16/2021 3:18 PM PDT Approved by: Jacqueline Chao MD on 05/16/2021 3:18 PM PDT Station ID: [id number]
== END 2021-05-16 11:09 | disposition home or self-care (01) ==
LOC: DI 11:08
PROVIDERS: ATTEND Podiatrist
DX: M19.071 Primary osteoarthritis, right ankle and foot (principal)

== ENCOUNTER 2021-08-15 13:42 | Outpatient (CLI) | payer MEDICARE, OTHER ==
--- NOTE | 2021-08-16 08:16 | Ultrasound Report ---
LIMITED ULTRASOUND OF LEFT BREAST: 08/15/2021 CLINICAL: Focal left breast pain. Comparison is made to exam dated: 12/07/2020 ultrasound - [facility]. Ultrasound of the left breast upper outer quadrant and retroareolar regions was performed. Seals sca le images of the real-time examination were reviewed. Left saline implant is intact. No significant abnormalities were seen sonographically in the left breast. Specifically, no finding to explain the patient's pain. IMPRESSION: BENIGN There is no sonographic evidence of malignancy. There is no abnormality seen in the left breast to correspond with the pain in the upper outer quadra nt. If there is continued concern for recurrent malignancy, contrast-enhanced breast MRI could be perform ed. Findings and recommendations were conveyed to the patient at time of exam. This exam was interpreted at Station ID: [id number]. Electronically Signed By: Eloina sweeney/:08/15/2021 14:38:33 Ultrasound BI-RADS: 2 Benign BI-RADS CATEGORY: (2) - 2 Unspecified - other recall n/a LATERALITY: (B)
== END 2021-08-15 13:43 | disposition home or self-care (01) ==
LOC: DI 13:42
PROVIDERS: ATTEND Internal Medicine Hematology & Oncology
DX: C50.912 Malignant neoplasm of unspecified site of left female breast (principal); N64.4 Mastodynia; Z98.82 Breast implant status

== ENCOUNTER 2022-03-13 08:00 | Outpatient (CLI) | payer MEDICARE, OTHER ==
[2022-03-14 00:09] LABS: BACTERIAL VAGINOSIS DNA NEGATIVE (NEGATIVE); CANDIDA GLABRATA DNA NEGATIVE (NEGATIVE); CANDIDA GROUP DNA NEGATIVE (NEGATIVE); CANDIDA KRUSEI DNA NEGATIVE (NEGATIVE); TRICHOMONAS VAGINALIS DNA NEGATIVE (NEGATIVE)
[2022-03-14 00:29] LABS: CHLAMYDIA TRACHOMATIS DNA NEGATIVE (NEGATIVE); NEISSERIA GONORRHOEAE DNA NEGATIVE (NEGATIVE)
== END 2022-03-13 23:59 | disposition home or self-care (01) ==
LOC: LAB.N 08:00
PROVIDERS: ATTEND Nurse Practitioner
DX: N89.8 Other specified noninflammatory disorders of vagina (principal)
CPT/HCPCS: 81514; 87491; 87591; 87661

== ENCOUNTER 2022-05-05 08:19 | Emergency (ER) | payer MEDICARE, OTHER ==
--- NOTE | 2022-05-05 08:38 | ED Physician Documentation ---
PD HPI URI - Stated complaint Stated Complaint: COUGH - Chief complaint Chief Complaint: General - History obtained from History obtained from: Patient - History of Present Illness Timing - onset: How many weeks ago (1) Timing duration: Weeks (1) Timing details: Gradual onset, Still present (worsening) Associated symptoms: Chills, Productive cough. No: Fever, Nasal congestion, Sore throat, Swollen nodes, Hemoptysis, Chest pain Contributing factors: No: Sick contact, Unimmunized, COPD / asthma Improves by: No: MDI/nebulizer Worsened by: Breathing Similar symptoms before: Has not had sx before Recently seen: Not recently seen Review of Systems Constitutional: reports: Myalgias, Fatigue. 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 Acidophilus/Bifid. Animalis 1 cap PO DAILY 03/22/14 05/05/22 [Probiotic 5 Billion Cell Cap] Magnesium Oxide [Magnesium] 400 mg PO DAILY 03/22/14 05/05/22 Multivit-Min/FA/Lycopene/Lut 1 each PO DAILY 03/22/14 05/05/22 [Centrum Silver Tablet] Venlafaxine ER [Effexor ER] 25 mg PO DAILY 12/10/20 05/05/22 Albuterol Sulf [Ventolin Hfa 1 - 2 puffs INH QID 10 Days #18 gm 05/05/22 Inhaler] Amoxicillin 500 mg PO TID #15 cap 05/05/22 Benzonatate [Tessalon] 100 mg PO TID PRN #25 cap 05/05/22 dexAMETHasone [Decadron] 4 mg PO DAILY #5 tablet 05/05/22 - Allergies Allergies/Adverse Reactions: Allergies Allergy/AdvReac Type Severity Reaction Status Date / Time zolpidem [From Ambien] AdvReac Mild Hallucinati Verified 05/05/22 08:23 ons - Social History Does the pt smoke?: No Smoking Status: Never smoker Does the pt drink ETOH?: No Does the pt have substance abuse?: No - Immunizations Immunizations are current?: Yes - POLST Patient has POLST: No PD ED PE NORMAL - Vitals Vital signs reviewed: Yes - General General: Alert and oriented X 3, No acute distress, Well developed/nourished - HEENT HEENT: Ears normal, Pharynx benign - Neck Neck: Supple, no meningeal sign, No adenopathy - Cardiac Cardiac: RRR, No murmur - Respiratory Respiratory: No respiratory distress, Clear bilaterally (faint perihilar wheezing. ), Other (no carse crackles nor wet sounds. scant exp wheezing. Deep breath does not hurt. ) - Abdomen Abdomen: Soft, Non tender - Derm Derm: Normal color, Warm and dry - Extremities Extremities: No edema, No calf tenderness / cord - Neuro Neuro: Alert and oriented X 3, No motor deficit, Normal speech Results - Vitals Vitals: Vital Signs - 24 hr 05/05/22 05/05/22 05/05/22 08:24 09:31 10:10 Temperature 37 C 37.0 C Heart Rate 66 60 65 Respiratory 18 20 16 Rate Blood Pressure 126/52 L 111/66 O2 Saturation 98 99 Oxygen O2 Source Room air PD MEDICAL DECISION MAKING - ED course Complexity details: considered differential (having cough productive with some uri preceding. Consider viral vs some component seeming bacterial (sputum discolored, mainly cough and not congested/sore throat, malaise).), d/w patient Departure - Departure Disposition: 01 Home, Self Care Clinical Impression: Lower respiratory infection Condition: Stable Follow-Up: Bennie Tay MD [Primary Care Provider] - Prescriptions: Amoxicillin 500 mg PO TID #15 cap dexAMETHasone [Decadron] 4 mg PO DAILY #5 tablet Benzonatate [Tessalon] 100 mg PO TID PRN #25 cap PRN Reason: Cough Albuterol Sulf [Ventolin Hfa Inhaler] 1 - 2 puffs INH QID 10 Days #18 gm Comments: This may be a viral illness with bronchial irritation. However consider possible bacterial as well. I would treat this with several medications to head at different components of the process. Albuterol inhaler 2 puffs 4 times daily for the next several days to week to help with spasm and cough of the bronchioles. Decadron steroid daily for 5 more days to help with inflammation of the airways/bronchioles and therefore less coughing. Tessalon/benzonatate to help with cough suppression. With consideration of possible bacterial component, I would also add amoxicillin 3 times daily for 5 days. Hopefully your symptoms will be fairly well improved over the next few days. S kacey well-hydrated. Activity as tolerated. Being the Day holiday, [facility] appears to be the only pharmacy open in [place] today so I transmitted the prescriptions there. Discharge Date/Time: 05/05/22 10:47
[2022-05-05] MEDS ORDERED: AMOXICILLIN 250 MG CAPSULE PO STA (09:07)
[2022-05-05] MEDS ORDERED: BENZONATATE 100 MG CAPSULE PO STA (09:07)
[2022-05-05] MEDS ORDERED: DEXAMETHASONE 10 MG/ML VIAL PO STA (09:07)
[2022-05-05] MEDS ORDERED: ALBUTEROL 1 PUFF INH STA (09:07)
[2022-05-05] MEDS ORDERED: CHERRY SYRUP 10 ML UDC PO ONE (09:07)
[2022-05-05 10:47] VITALS: BP 111/66
== END 2022-05-05 10:47 | disposition home or self-care (01) ==
LOC: ED 08:19
DX: J22 Unspecified acute lower respiratory infection (principal)
CPT/HCPCS: 94640; 94664; 99282; 99284; A9270

== ENCOUNTER 2022-09-12 10:44 | Outpatient (CLI) | payer MEDICARE, OTHER ==
[2022-09-12 10:56] LABS: BASOPHILS % (AUTO) 0.6 %; EOSINOPHILS # (AUTO) 0.3 10^3/uL (0.0-0.7); EOSINOPHILS % (AUTO) 5.7 %; HCT - HEMATOCRIT 42.4 % (37.0-47.0); LYMPHOCYTES # (AUTO) 1.5 10^3/uL (1.5-3.5); LYMPHOCYTES % (AUTO) 32.3 %; MEAN CORPUSCULAR HEMOGLOBIN 31.5 pg (27.0-31.0); MEAN CORPUSCULAR VOLUME 95.5 fL (81.0-99.0); MEAN PLATELET VOLUME 8.6 fL (7.9-10.8); MONOCYTES # (AUTO) 0.5 10^3/uL (0.0-1.0); MONOCYTES % (AUTO) 11.1 %; NEUTROPHILS # (AUTO) 2.4 10^3/uL (1.5-6.6); NEUTROPHILS % (AUTO) 49.7 %; PLT - PLATELET COUNT 270 10^3/uL (130-450); RED BLOOD COUNT 4.44 10^6/uL (4.20-5.40); RED CELL DISTRIBUTION WIDTH 12.5 % (12.0-15.0); WHITE BLOOD COUNT 4.8 x10^3/uL (4.8-10.8)
[2022-09-12 11:14] LABS: ALBUMIN 4.3 g/dL (3.2-5.5); ALBUMIN/GLOBULIN RATIO 1.3 (1.0-2.2); ALKALINE PHOSPHATASE 74 IU/L (42-121); ALT ALANINE AMINOTRANSFERASE 18 IU/L (10-60); AST ASPARTATE AMINOTRANSFERASE 20 IU/L (10-42); BILIRUBIN,TOTAL 1.3 mg/dL (0.2-1.0); BUN - BLOOD UREA NITROGEN 20 mg/dL (6-20); CALCIUM 9.6 mg/dL (8.5-10.3); CARBON DIOXIDE - CO2 29 mmol/L (21-32); CHLORIDE 101 mmol/L (101-111); CHOL/HDL RATIO 3.6 (<4.4); CHOLESTEROL 266 mg/dL; CREATININE 0.7 mg/dL (0.4-1.0); GFR - MDRD 83 (>89); GLUCOSE 101 mg/dL (70-100); HDL CHOLESTEROL 74 mg/dL; LDL CHOLESTEROL,CALCULATED 175 mg/dL; LDL/HDL RATIO 2.4 (<4.4); POTASSIUM 4.1 mmol/L (3.5-5.0); SODIUM 141 mmol/L (135-145); TOTAL PROTEIN 7.7 g/dL (6.7-8.2); TRIGLYCERIDES 86 mg/dL; VLDL CHOLESTEROL 17 mg/dL
[2022-09-12 11:26] LABS: THYROID STIMULATING HORMONE 1.01 uIU/mL (0.34-5.60)
[2022-09-13 07:09] LABS: RPR Non Reactive (Non Reactive)
== END 2022-09-12 10:45 | disposition home or self-care (01) ==
LOC: LAB 10:44
PROVIDERS: ATTEND Internal Medicine
DX: E78.2 Mixed hyperlipidemia (principal); R41.3 Other amnesia; G47.33 Obstructive sleep apnea (adult) (pediatric)
CPT/HCPCS: 36415; 80053; 80061; 82607; 83721; 84443; 85025; 86592

== ENCOUNTER 2022-11-13 11:25 | Outpatient (CLI) | payer MEDICARE, OTHER ==
[2022-11-13 11:36] LABS: BASOPHILS % (AUTO) 0.5 %; EOSINOPHILS # (AUTO) 0.1 10^3/uL (0.0-0.7); EOSINOPHILS % (AUTO) 2.5 %; HCT - HEMATOCRIT 41.4 % (37.0-47.0); HGB - HEMOGLOBIN 13.8 g/dL (12.0-16.0); LYMPHOCYTES # (AUTO) 1.9 10^3/uL (1.5-3.5); LYMPHOCYTES % (AUTO) 33.6 %; MEAN CORPUSCULAR HEMOGLOBIN 31.9 pg (27.0-31.0); MEAN CORPUSCULAR HGB CONC 33.3 g/dL (32.0-36.0); MEAN CORPUSCULAR VOLUME 95.8 fL (81.0-99.0); MEAN PLATELET VOLUME 8.2 fL (7.9-10.8); MONOCYTES # (AUTO) 0.5 10^3/uL (0.0-1.0); MONOCYTES % (AUTO) 9.2 %; NEUTROPHILS % (AUTO) 53.5 %; PLT - PLATELET COUNT 313 10^3/uL (130-450); RED BLOOD COUNT 4.32 10^6/uL (4.20-5.40); RED CELL DISTRIBUTION WIDTH 12.2 % (12.0-15.0); WHITE BLOOD COUNT 5.7 x10^3/uL (4.8-10.8)
== END 2022-11-13 11:26 | disposition home or self-care (01) ==
LOC: LAB 11:25
PROVIDERS: ATTEND Optometrist
DX: R51.9 Headache, unspecified (principal)
CPT/HCPCS: 36415; 85025; 85651; 86140

== ENCOUNTER 2022-11-21 07:59 | Day surgery (SDC) | payer MEDICARE, OTHER ==
[2022-11-21] MEDS ORDERED: LACTATED RINGERS 1,000 ML IV ONE (08:01)
--- NOTE | 2022-11-21 08:25 | ANESTHESIA ---
Pre-Anesthesia VS, & Labs - Diagnosis giant cell arteritis - Procedure temporal artery biopsy Vital Signs: Temp Pulse Resp BP Pulse Ox O2 Flow Rate 36.4 C L 54 L 16 128/61 97 11/21/22 08:02 11/21/22 08:02 11/21/22 08:02 11/21/22 08:02 11/21/22 08:02 Height: 5 ft 5 in Weight (kg): 71 kg Body Mass Index: 26.0 BMI Classification: Overweight - NPO >8 hours - Is Patient ?: No - Lab Results Lab results reviewed: Yes Home Medications and Allergies Cholecalciferol (Vitamin D3) [Vitamin D3] 4,000 unit PO DAILY 03/22/14 L. Acidophilus/Bifid. Animalis [Probiotic 5 Billion Cell Cap] 1 cap PO DAILY 03/22/14 Magnesium Oxide [Magnesium] 400 mg PO DAILY 03/22/14 Multivit-Min/FA/Lycopene/Lut [Centrum Silver Tablet] 1 each PO DAILY 03/22/14 Venlafaxine ER [Effexor ER] 25 mg PO DAILY 12/10/20 Allergies/Adverse Reactions: Allergies Allergy/AdvReac Type Severity Reaction Status Date / Time zolpidem [From Ambien] AdvReac Mild Hallucinati Verified 05/05/22 08:23 ons Anes History & Medical History - Medical History Cardiovascular: reports: None Pulmonary: reports: Sleep apnea, CPAP use Gastrointestinal: reports: GERD, Ulcers Urinary: reports: None Neuro: reports: Headaches, Other Musculoskeletal: reports: Other Endocrine/Autoimmune: reports: None Blood Disorders: reports: None Skin: reports: Psoriasis Smoking Status: Never smoker - Surgical History General: reports: Appendectomy, Colonoscopy Gynecologic: reports: section, Hysterectomy, Mastectomy Orthopedic: reports: Carpal Tunnel surgery Exam General: Alert, Oriented x3, Cooperative Dental: WNL Mouth Openin Fingerbreadth Neck Mobility: Normal Mallampati classification: II Thyromental Distance: 4-6 cm Respiratory: Lungs clear, Normal breath sounds, No respiratory distress Cardiovascular: Regular rate Neurological: Normal speech Mental/Cognitive Status: Alert/Oriented X3, Normal for patient Cognitive Status: Within normal limits Plan Anesthesia Type: General, Total IV Consent for Procedure(s) Verified and Reviewed: Yes Code Status: Attempt Resuscitation ASA classification: 2-Mild systemic disease Is this case an emergency?: No
[2022-11-21] MEDS ORDERED: BUPIVACAINE 0.5% PF 30 ML VIAL ONE (09:22)
[2022-11-21] MEDS ORDERED: PROPOFOL 500 MG/50 ML 500 MG/50 ML VIAL ONE (09:44)
[2022-11-21] MEDS ORDERED: MIDAZOLAM 2 MG/2 ML VIAL ONE (09:44)
[2022-11-21] MEDS ORDERED: fentaNYL 100 MCG/2 ML VIAL ONE (09:44)
[2022-11-21] MEDS ORDERED: BUPIVACAINE 0.5% PF 30 ML VIAL INFIL ONE ×2 (10:40)
[2022-11-21] MEDS ORDERED: BACITRACIN ZINC OINT 1 PACKET TOP ONE (11:24)
[2022-11-21] MEDS ORDERED: LACTATED RINGERS 700 ML IV ONE (11:28)
--- NOTE | 2022-11-21 11:50 | OPERATIVE REPORT ---
Operative Report - General Procedure Date: 11/21/22 Planned Procedure: Right temporal artery biopsy Pre-Op Diagnosis: Unilateral severe headaches Procedure Performed: Right temporal artery biopsy Post Op Diagnosis: Same - Procedure Note Primary Surgeon: Hiram Solano MD Anesthesia Provider: Tanner Reyes CRNA Anesthesia Technique: Local (5 mL of half percent Marcaine), MAC IV Fluids (mL): 1,000 Estimated Blood Loss (mL): 1 Complications: None. - Other Other Information/Narrative: After verbal and written informed consent was obtained detailing the operation, the alternatives the operation including no operation, risks of infection, bleeding requiring transfusion with its risks, nerve injury, and and after I met with the patient confirming the surgery and the site of surgery, the patient was brought to the operative suite and placed supine on the operating table. Great care was taken to avoid pressure points to prevent pressure necrosis or nerve injury. Monitoring devices were applied along with TEDs and pneumatic compression stockings (to prevent DVT). The patient received preoperative antibiotics for surgical prophylaxis. (Anesthesiologist) sedated and anesthetized the patient for the entire procedure. Ultrasonography was used to identify the the artery and the border of the hair and skin just superior to the ear. The patient was prepped and draped in the usual sterile manner. With the patient draped my initials were clearly visible. A "time in" then confirmed that the patient was identified with 3 identifiers (name, date, and medical record number), the history and physical was updated and in the chart, the signed consent confirming the procedure was in the chart, the patient was in the correct position, the aforementioned prophylactic measures were in place or given, we had the correct personnel and equipment to complete the procedure and that anesthesia and the surgical team were given an opportunity to express any concerns. With the agreement of everyone in the room we proceeded with the operation. After injecting the skin overlying the path of the artery with half percent Marcaine, an incision was made tracing the path of the artery and was carried out down to the artery using a combination of sharp dissection with Metzenbaum scissors and Bovie electrocautery. Note that the superficial fascia was entered sharply in order to get to the temporal artery. Meticulous hemostasis was achieved using Bovie electrocautery. Once the artery was identified and freed from its surrounding tissues a sterile ultrasound probe was used to definitively identify arterial blood flow within it. The artery was then clipped using small hemoclips proximally and distally and the specimen was excised with Metzenbaum scissors, removed from the operative field, placed on a moistened Telfa, and placed in formalin for pathologic evaluation. The ultrasound probe was then used again today to demonstrate that there was no arterial flow behind the location of where the artery was removed to ensure completion of the resection. Meticulous hemostasis was ensured using Bovie electrocautery. The surrounding skin was then reinjected using half percent Marcaine for long-term pain control. The skin was approximated using 3-0 Prolene in an interrupted and alternating mattress and simple fashion. Prolene was used to make identification of the suture easier for removal. Additionally standard sutures were placed in order allow for shampooing of the patient's hair without concern of wound dehiscence. The skin was cleaned of its prep. At this point a timeout was performed that confirmed that all counts were correct x2, the procedure that was performed, the blood loss, the IV fluids administered, the patient's condition, and any concerns of the operating team had. Having tolerated the procedure well, the patient was taken recovery room in good and stable condition. The plan is for outpatient discharge when the patient is adequately recovered. CPT 26743 This document was created in part using voice recognition technology. Because of the inherent limitations of the system, occasional same sounding word substitutions and grammatical errors do occur and persist despite proofreading. Please read this document for content.
[2022-11-21 12:21] VITALS: BP 134/69
--- NOTE | 2022-11-21 12:46 | ANESTHESIA POST OP EVALUATION ---
Anesthesia Post Eval - Post Anesthesia Eval Vitals: Last Vital Signs Temp 36.6 C 11/21/22 12:10 Pulse 64 11/21/22 12:10 Resp 15 11/21/22 12:10 BP 134/69 H 11/21/22 12:10 Pulse Ox 100 11/21/22 12:10 O2 Flow Rate CV Function Including HR & BP: Stable Pain Control: Satisfactory Nausea & Vomiting: Negative Mental Status: Baseline Respiratory Status: Airway Patent Hydration Status: Satisfactory Anesthesia Complications: None
== END 2022-11-21 08:00 | disposition home or self-care (01) ==
LOC: SDS 07:59
PROVIDERS: ATTEND Surgery
PROC: 03BS0ZX Excision of Right Temporal Artery, Open Approach, Diagnostic (ICD-10-PCS; principal; 2022-11-21 09:15)
DX: R51.9 Headache, unspecified (principal); G47.30 Sleep apnea, unspecified
CPT/HCPCS: 37609; A9270; J7120

== ENCOUNTER 2023-01-15 15:08 | Outpatient (CLI) | payer MEDICARE, OTHER ==
[2023-01-15 15:21] LABS: BASOPHILS % (AUTO) 0.6 %; EOSINOPHILS # (AUTO) 0.1 10^3/uL (0.0-0.7); EOSINOPHILS % (AUTO) 0.7 %; HCT - HEMATOCRIT 42.8 % (37.0-47.0); HGB - HEMOGLOBIN 14.4 g/dL (12.0-16.0); LYMPHOCYTES # (AUTO) 0.9 10^3/uL (1.5-3.5); LYMPHOCYTES % (AUTO) 12.6 %; MEAN CORPUSCULAR HEMOGLOBIN 32.9 pg (27.0-31.0); MEAN CORPUSCULAR HGB CONC 33.6 g/dL (32.0-36.0); MEAN CORPUSCULAR VOLUME 97.7 fL (81.0-99.0); MEAN PLATELET VOLUME 8.6 fL (7.9-10.8); MONOCYTES # (AUTO) 0.3 10^3/uL (0.0-1.0); MONOCYTES % (AUTO) 4.2 %; NEUTROPHILS # (AUTO) 5.7 10^3/uL (1.5-6.6); NEUTROPHILS % (AUTO) 80.8 %; PLT - PLATELET COUNT 265 10^3/uL (130-450); RED BLOOD COUNT 4.38 10^6/uL (4.20-5.40); RED CELL DISTRIBUTION WIDTH 13.5 % (12.0-15.0); WHITE BLOOD COUNT 7.1 x10^3/uL (4.8-10.8)
== END 2023-01-15 15:09 | disposition home or self-care (01) ==
LOC: LAB 15:08
PROVIDERS: ATTEND Internal Medicine
DX: G50.0 Trigeminal neuralgia (principal)
CPT/HCPCS: 36415; 85025; 85651; 86140

== ENCOUNTER 2023-01-29 08:10 | Outpatient (CLI) | payer MEDICARE, OTHER ==
--- NOTE | 2023-01-29 18:04 | CT Report ---
PROCEDURE: SINUS SCREENING WO INDICATIONS: FACIAL PAIN TECHNIQUE: Noncontrast 3.0 mm axial images acquired from the frontal sinuses to the mid-sella, with coronal and sagittal reformats. For radiation dose reduction, the following was used: automated exposure control , adjustment of mA and/or kV according to patient size. COMPARISON: Limited sinus CT dated 01/09/2014. FINDINGS: Image quality: Excellent. Maxillary Sinuses: Interval bilateral medial nasal antral windows. Inferior left maxillary sinus muco [place] thickening measures 3 mm. There is trace right maxillary sinus mucosal thickening. Ethmoid Air Cells: Interval subtotal ethmoidectomies. Ethmoids are clear. Sphenoid Sinuses: Very minimal focal soft tissue in the left sphenoid sinus. Sinuses are otherwise c lear. Frontal Sinuses: Unremarkable, clear Ostiomeatal Complexes: Surgical resection of ostiomeatal complexes. Miscellaneous: Visualized intra-orbital contents are normal. No lena bullosa. . Minimal leftward nasal septal deviation. No significant narrowing of the nasal passages. IMPRESSION: 1. Extensive nasal sinus surgery including bilateral medial nasal antral windows, bilateral uncinate process resections, and subtotal ethmoidectomies. 2. Mild bilateral chronic maxillary sinus disease. No sinus disease. Reviewed by: Davon Lewis MD on 01/29/2023 6:02 PM PDT Approved by: Davon Lewis MD on 01/29/2023 6:02 PM PDT Station ID: [id number]
== END 2023-01-29 08:11 | disposition home or self-care (01) ==
LOC: DI 08:10
PROVIDERS: ATTEND Internal Medicine
DX: J32.0 Chronic maxillary sinusitis (principal)

== ENCOUNTER 2023-03-11 12:55 | Outpatient (CLI) | payer MEDICARE, OTHER ==
--- NOTE | 2023-03-11 13:43 | Sleep Patient Instructions ---
Sleep Center Visit Summary - Patient Visit Information Reason for Visit: Initial consult with patient on PAP therapy - Patient Instructions Additional Instructions: You will be completing a sleep study, either an in-lab polysomnography (PSG) or home sleep study (HST). You will follow-up in the sleep care office after the sleep study is completed to hear the results and talk about therapy, if needed. You will be called by our office staff to schedule this appointment, but you may contact us with any questions. - Clinic Information Contact: [facility] [address] [place] [id number] [email or web address] T: [phone]
--- NOTE | 2023-03-11 13:54 | SLEEP CARE CONSULTATION ---
Information from patient questionnaire entered by Lakshmi Hawkins. I have reviewed and concur with the information entered by Lakshmi Hawkins. This document represents the service I personally performed and the decisions made by me, Krystal Clarke ARNP. History of Present Illness Service Date and Time: 03/11/2023 1255 Reason for Visit: New patient, Previously diagnosed sleep apnea, Re-establish care Accompanied by: Spouse (Tony) Chief Complaint: reports: Unrefreshed sleep, Snoring, Excessive daytime sleepiness, Observed pauses in breathing, Fatigue Date of Onset: 12 years Usual bedtime: 10 PM Time it takes to fall asleep: depends Snores at night: Yes Observed to quit breathing while asleep: Yes Sleeps alone due to snoring: Yes (sometimes) Number of times waking at night: 2-3 Reasons for waking at night: reports: Snoring, Bathroom, Other (unknown reasons). denies: Choking, Gasping for air Toss, Turn, or Twitch while sleeping: Yes Recalls having dreams: Yes (has "wild, loud dreams") Usually gets out of bed at: 0700 Feels refreshed in the morning: No Morning headache: Yes (daily) Sleepy or fatigued during the day: Yes Ever fallen asleep while driving: No Takes day naps: Yes (6 days a week; last about 30 minutes) Dreams during day naps: Yes Prior sleep studies: Yes Year and Where: [facility] Additional HPI information: BERHANE CODY was previously diagnosed to have moderate, AHI 29.6, obstructive sleep apnea-hypopnea syndrome and comes in today to establish care. CPAP Compliance Data Compliance data discussion: She has a Resmed Airsense 10 that she paid for and two Dreamstation machines. She is not using any of them. 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 Patient is and lives in [place]. Have you smoked in the past 12 months: No Alcohol use: Yes Alcohol amount and frequency: 4 glasses of wine in a week Caffeine use: Yes Caffeine amount and frequency: 200 mg a day Family History Family history of sleep disordered breathing: No Family Hx Sleep Apnea: Father: Snoring, Sleep apnea - Untreated, Sibling: Snoring, Sleep apnea - Untreated Allergies and Home Medications Known drug allergies: Yes (zolpidem) Drug allergies reviewed: Yes Home medication list reviewed: Yes (see updated list in EMR) Allergy and home medication list: Allergies zolpidem [From Ambien] Adverse Reaction (Mild, Verified 03/10/23 14:11) Hallucinations Review of Systems Cardiovascular: denies: high blood pressure Respiratory: reports: chronic cough Gastrointestinal: reports: heartburn Urinary: reports: frequency Neurological: reports: headaches, disorientation Psychiatric: reports: anxiety, depression, mood disorder, claustrophobia Ear/Nose/Throat: reports: nasal congestion, wisdom teeth removed Endocrine: reports: sluggishness, too hot or cold, excessive thirst, increased urination Musculoskeletal: reports: joint pain Immunologic: reports: sneezing, allergies to food or environment (seasonal allergies) Physical Exam Vital signs obtained and entered by: LAKSHMI Fulton [place] Blood Pressure: 112/62 (03/11/23) Cuff size: regular Heart Rate: 62 O2 Saturation: 97 Height: 5 ft 5 in Weight: 164 lb 12.8 oz Body Mass Index: 27.4 BMI Classification: Overweight Neck circumference: 14 Heart: regular rate and rhythm Lungs: clear bilaterally Impression and Plan 1. Obstructive Sleep Apnea-Hypopnea Syndrome, moderate. She states she stopped using her CPAP, a DreamStation, when she found out about the recall. She been experiencing a odor in her machine prior to her finding out about the recall. She did purchase a ResMed air sense 10 on her own and she cannot remember why she stopped using it. Her feels she probably has not been using a machine for at least a year and a half. She has been encouraged to come back for treatment because she is having issues with constant headaches that are debilitating and that she wakes up with. She is also having memory and cognitive decline issues. I recommend proceeding to polysomnography to confirm the diagnosis and to assess severity since she has not been using CPAP consistently since 2019. I think it would be good to get an updated baseline. She agreed with plane. I obtained agreement to proceed. The pathophysiology of obstructive sleep apnea-hypopnea syndrome was discussed with the patient and health risks of cardiovascular and cerebrovascular disease if not treated. Risks of drowsy driving discussed in detail and patient advised to avoid long distance driving and to candy puller at the first sign of drowsiness. Patient agreed to plan. 2. Overweight, unspecified. Currently patients BMI is 27.4. Obesity increases the risk of apnea, CPAP pressure requirements and overall health risks especially cardiovascular and diabetes. Thus patient is advised to lose weight. * Schedule polysomnography +- manual CPAP titration study and return in 1-2 weeks after the study to discuss result and initiate therapy. * Avoid long distance driving or driving when feeling sleepy. * Avoid alcohol, sedative and muscle relaxant around bedtime. * Attempt to lose weight. * Review instructions provided by trained office staff on how to prepare for the sleep study. * Return for follow-up after sleep study completed. Counseling Topics: Weight loss health impact Visit Type: In Office Time Spent with Patient (minutes): 35 Provider Statement: I spent 100% of the Face to Face Visit with the patient with greater than 50% spent counseling the patient and coordination of care.
[2023-03-11 14:08] VITALS: BP 112/62
== END 2023-03-11 12:56 | disposition home or self-care (01) ==
LOC: SC 12:55
PROVIDERS: ATTEND Nurse Practitioner Family
DX: G47.33 Obstructive sleep apnea (adult) (pediatric) (principal); E66.3 Overweight; Z68.27 Body mass index [BMI] 27.0-27.9, adult
CPT/HCPCS: 99203; G0463; 99212

== ENCOUNTER 2023-04-05 19:35 | Outpatient (CLI) | payer MEDICARE, OTHER | END 2023-04-05 19:36 | disposition home or self-care (01) | LOC: SC 19:35 | PROVIDERS: ATTEND Nurse Practitioner Family | DX: G47.33 Obstructive sleep apnea (adult) (pediatric) (principal); G47.61 Periodic limb movement disorder | CPT/HCPCS: 95810 ==

== ENCOUNTER 2023-04-17 13:52 | Outpatient (CLI) | payer MEDICARE, OTHER ==
--- NOTE | 2023-04-17 14:35 | Sleep Patient Instructions ---
Sleep Center Visit Summary - Patient Visit Information Reason for Visit: Sleep Study Followup - Patient Instructions Additional Instructions: You are being started on CPAP therapy with pressure setting at 7-14 cmH2O. You may call the office with any concerns about pressure feeling too low or too much for adjustment, if needed. You should contact DME for any questions or concerns about mask or equipment. Please return for a follow up appointment in the sleep care office in 1-2 months. - Clinic Information Contact: [facility] [address] [place] [address] [email or web address] T: [phone]
--- NOTE | 2023-04-17 14:40 | SLEEP CARE CONSULTATION ---
Information from patient questionnaire entered by Lakshmi Hawkins. I have reviewed and concur with the information entered by Lakshmi Hawkins. This document represents the service I personally performed and the decisions made by , Krystal Clarke ARNP. History of Present Illness Service Date and Time: 04/17/2023 1352 Accompanied by: Spouse Initial [place] Sleepiness Scale score: 8 (03/11/2023) Current [place] Sleepiness Scale score: 12 (04/17/23) Additional HPI information: BERHANE CODY returns with spouse for follow up and results of the recently performed polysomnography. I explained the pathophysiology behind obstructive sleep apnea. We then spent quite a bit of time discussing different treatment options. For mild obstructive sleep apnea, surgery and oral appliance are alternatives to nasal CPAP therapy but in moderate or severe cases, nasal CPAP is the most effective and reliable treatment. I reviewed the impact of weight changes on sleep apnea and strongly recommended losing weight. The patient wants to restart opted to go with the nasal CPAP therapy. Nasal autoCPAP set at 7-14 cmH20 will be ordered with rationale explained. Patient does not drink alcohol. Patient was cautioned about risks of drowsy driving until sleepiness symptoms resolve. Patient denies drowsy driving. Sleep Study - Results Type of Sleep Study: Polysomnography (COMPLETED ON 04/05/23) Prior sleep studies: Yes Year and Where: [facility] Polysomnography/Home Sleep Study results: IMPRESSION: The quality of the study is good. The patient had slightly reduced sleep efficiency due to a prolonged awakening during the night. The sleep architecture was abnormal for sleep fragmentation and reduced amount of time spent in REM and slow wave sleep (N3). Respiratory monitoring showed severe obstructive sleep apnea-hypopnea (AHI = 33.7) associated with frequent arousals, oxyhemoglobin desaturation and moderate hypoxia (sil oxygen saturation of 76%). Baseline oxygen saturation was normal. The respiratory events occurred more frequently during supine sleep (supine AHI = 67.8; non-supine = 20.20). Snore was moderate to loud in intensity. There was severe periodic leg movement of sleep contributing to the sleep fragmentation. Cardiac rhythm was normal sinus rhythm without significant arrhythmia. No abnormal behavior (parasomnia) observed during the night. Allergies and Home Medications Known drug allergies: Yes (zolpidem) Drug allergies reviewed: Yes Home medication list reviewed: Yes Allergy and home medication list: Allergies zolpidem [From Ambien] Adverse Reaction (Mild, Verified 04/16/23 16:33) Hallucinations Review of Systems Review of systems same as previous: No (APHAISA ) Physical Exam Vital signs obtained and entered by: ROB FRAUSTO Blood Pressure: 100/60 (RIGHT ARM) Cuff size: regular Heart Rate: 59 O2 Saturation: 97 Height: 5 ft 5 in Weight: 160 lb 3.2 oz Body Mass Index: 26.6 BMI Classification: Overweight Impression and Plan 1. Obstructive Sleep Apnea-Hypopnea Syndrome, severe, with lowest oxygen saturation of 76%. Obviously this is the cause of the patients symptoms of unrefreshed sleep, and excessive daytime sleepiness. Positive pressure therapy could benefit anxiety, depression, mood disorder and gastric reflux. As mentioned above, the patient will be re-started on nasal autoCPAP therapy with pressure set at 7-14 cmH2O. Compliance guidelines also reviewed. A copy of compliance guidelines will be given for reference at check out. She was fitted to a [employer] nasal pillows mask, medium cushion, so she can start using the mask right away. She is going to need set up with a DME. I will have my pesticide use medical coordinator inform of DME options. A DWO prescription will then be made. Patient advised to contact this office if further supply problems. 2. Hypoxemia, moderate, with a sil oxygen saturation of 76% and 23.7 minutes spent under 90%. Her baseline oxygen saturation was normal with an average oxygen saturation of 93%. 3. Periodic limb movement, severe, that did contribute to fragmentation of patients sleep. Periodic limb movement of sleep (PLMS) is characterized by episodes of repetitive limb movements that occur during sleep and usually involve the lower limbs. The etiology is unknown. Caffeine can aggravate PLMS and should be avoided. Sleep hygiene methods can also improve sleep as well as lifestyle changes such as regular exercise. Patient was advised that no treatment is needed at this time. If symptoms increase, then further evaluation is indicated. * Continue auto CPAP pressure at 7-14 cmH2O * Notify me if snoring with mask or feeling that the pressure is too much or too little * Attempt to lose weight * Call this office if any problems using CPAP * Return for follow up in 1-2 months, or sooner if concerns arise * Mask provided: Yes Counseling Topics: Weight loss health impact Visit Type: In Office Time Spent with Patient (minutes): 40 Provider Statement: I spent 100% of the Face to Face Visit with the patient with greater than 50% spent counseling the patient and coordination of care.
[2023-04-17 15:03] VITALS: BP 100/60; O2SAT 97
== END 2023-04-17 13:53 | disposition home or self-care (01) ==
LOC: SC 13:52
PROVIDERS: ATTEND Nurse Practitioner Family
DX: G47.33 Obstructive sleep apnea (adult) (pediatric) (principal); R09.02 Hypoxemia; G47.61 Periodic limb movement disorder; E66.3 Overweight; Z68.26 Body mass index [BMI] 26.0-26.9, adult
CPT/HCPCS: 99214; G0463; 99212

== ENCOUNTER 2023-06-18 11:09 | Emergency (ER) | payer MEDICARE, OTHER ==
[2023-06-18 11:27] VITALS: BP 145/75; O2SAT 97
--- NOTE | 2023-06-18 12:22 | ED Physician Documentation ---
History of Present Illness - Stated complaint Stated Complaint: ,PX - Chief complaint Chief Complaint: Abd Pain - History obtained from History obtained from: Patient, Family - History of Present Illness Timing: Today Pain level max: 0 Pain level now: 0 - Additonal information Additional information: 68-year-old female presents to the emergency department stating that she had surgery 2 days ago, since the surgery she has had constipation. Benld very constipated today and like she could not have a bowel movement. Since arriving in the emergency department she was able to have a bowel movement and is now asymptomatic. No fevers. No chills. No abdominal pain. No vomiting. 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 : None HEENT: None Psych: Anxiety Musculoskeletal: Other Derm: Psoriasis - Past Surgical History Past Surgical History: Yes General: Appendectomy, Colonoscopy Ortho: Carpal Tunnel surgery /SHIPYARD SUPERVISOR: section, Hysterectomy, Mastectomy - Present Medications Home Medications: Ambulatory Orders Medication Instructions Recorded Confirmed Cholecalciferol (Vitamin D3) 4,000 unit PO DAILY 03/22/14 04/17/23 [Vitamin D3] Multivit-Min/FA/Lycopene/Lut 1 each PO DAILY 03/22/14 04/17/23 [Centrum Silver Tablet] - Allergies Allergies/Adverse Reactions: Allergies Allergy/AdvReac Type Severity Reaction Status Date / Time zolpidem [From Ambien] AdvReac Mild Hallucinati Verified 04/17/23 14:00 ons - Social History Does the pt smoke?: No Smoking Status: Never smoker Does the pt drink ETOH?: No Does the pt have substance abuse?: No - Immunizations Immunizations are current?: Yes - POLST Patient has POLST: No PD ED PE NORMAL - Vitals Vital signs reviewed: Yes - General General: Alert and oriented X 3, No acute distress - HEENT HEENT: Moist mucous membranes - Respiratory Respiratory: No respiratory distress - Abdomen Abdomen: Soft, Non tender, Non distended - Derm Derm: Warm and dry - Neuro Neuro: Alert and oriented X 3 - Psych Psych: Normal mood, Normal affect Results - Vitals Vitals: Vital Signs - 24 hr 06/18/23 11:19 Temperature 36.9 C Heart Rate 65 Respiratory 18 Rate Blood Pressure 145/75 H O2 Saturation 97 Oxygen O2 Source Room air PD Medical Decision Making - ED course Complexity details: considered differential, d/w patient, d/w family ED course: Patient with constipation today that self resolved. No emergency medical condition at this time. No evidence of obstruction. No vomiting. Patient counseled regarding signs and symptoms for which I believe and urgent re- evaluation would be necessary. Patient with good understanding of and agreement to plan and is comfortable going home at this time This document was made in part using voice recognition software. While efforts are made to proofread this document, sound alike and grammatical errors may occur. Departure - Departure Disposition: 01 Home, Self Care Clinical Impression: Constipation Qualifiers: Constipation type: unspecified constipation type Qualified Code(s): K59.00 - Constipation, unspecified Condition: Good Instructions: ED Constipation Follow-Up: your,doctor as scheduled [Other] Comments: Please make sure you are drinking plenty of water at home. The tramadol can be constipating. Please return if you worsen. You can take Colace, senna or MiraLAX at home. Forms: PCP List
== END 2023-06-18 12:26 | disposition home or self-care (01) ==
LOC: ED 11:09
DX: K59.00 Constipation, unspecified (principal)
CPT/HCPCS: 99281; 99282

== ENCOUNTER 2023-07-14 14:11 | Emergency (ER) | payer MEDICARE, OTHER ==
[2023-07-14 14:28] VITALS: BP 135/75; O2SAT 98
[2023-07-14 14:43] LABS: BILIRUBIN,URINE NEGATIVE (NEGATIVE); GLUCOSE, URINE (UA) NEGATIVE (NEGATIVE); KETONES,URINE (UA) NEGATIVE (NEGATIVE); LEUKOCYTE ESTERASE, URINE SMALL (NEGATIVE); NITRITE,URINE NEGATIVE (NEGATIVE); OCCULT BLOOD,URINE NEGATIVE (NEGATIVE); PROTEIN,URINE NEGATIVE (NEGATIVE); UROBILINOGEN,URINE 0.2 (NORMAL) E.U./dL (NORMAL)
[2023-07-14 14:44] LABS: CLARITY,URINE CLEAR (CLEAR)
[2023-07-14 14:53] LABS: BACTERIA,URINE Rare /HPF (None Seen); RBC,URINE None Seen /HPF (0-5); SQUAMOUS EPITHELIAL CELL,UR RARE Squamous (<= Few)
--- NOTE | 2023-07-14 15:04 | ED Physician Documentation ---
History of Present Illness - Stated complaint Stated Complaint: ,LOWER BACK PX - Chief complaint Chief Complaint: UTI - History obtained from History obtained from: Patient - Additonal information Additional information: The patient comes to the emergency department chief complaint of urinary frequency and urgency for the last couple of days. She is also had some low back pain and hot and cold flashes with sweats. The patient has a history of recurrent UTIs and states this feels similar. No other complaints at this time. No abdominal pain. No respiratory symptoms. No change in bowel habits. 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 HEENT: None Psych: Anxiety Musculoskeletal: Other Derm: Psoriasis - Past Surgical History Past Surgical History: Yes General: Appendectomy, Colonoscopy Ortho: Carpal Tunnel surgery /CALL CENTER TEAM LEADER: section, Hysterectomy, Mastectomy, Breast implants - Present Medications Home Medications: Ambulatory Orders Medication Instructions Recorded Confirmed Cholecalciferol (Vitamin D3) 4,000 unit PO DAILY 03/22/14 04/17/23 [Vitamin D3] Multivit-Min/FA/Lycopene/Lut 1 each PO DAILY 03/22/14 04/17/23 [Centrum Silver Tablet] Sulfamethox/Trimeth 800/160 1 each PO BID #14 tablet 07/14/23 [Bactrim Ds 800/160] - Allergies Allergies/Adverse Reactions: Allergies Allergy/AdvReac Type Severity Reaction Status Date / Time zolpidem [From Ambien] AdvReac Mild Hallucinati Verified 07/14/23 14:16 ons - Social History Does the pt smoke?: No Smoking Status: Never smoker Does the pt drink ETOH?: No Does the pt have substance abuse?: Yes Substance Use and Type: CBD oil / Products - Immunizations Immunizations are current?: Yes - POLST Patient has POLST: No PD ED PE NORMAL - Vitals Vital signs reviewed: Yes - General General: Alert and oriented X 3, No acute distress, Well developed/nourished - HEENT HEENT: Atraumatic, PERRL, EOMI, Moist mucous membranes - Neck Neck: Supple, no meningeal sign - Cardiac Cardiac: RRR, No murmur - Respiratory Respiratory: No respiratory distress, Clear bilaterally - Abdomen Abdomen: Soft, Non tender, Non distended - Back Back: No CVA TTP - Derm Derm: Normal color, Warm and dry, No rash - Extremities Extremities: No deformity, No edema - Neuro Neuro: Alert and oriented X 3 - Psych Psych: Normal mood, Normal affect Results - Vitals Vitals: Vital Signs - 24 hr 07/14/23 14:18 Temperature 37.2 C Heart Rate 63 Respiratory 16 Rate Blood Pressure 135/75 H O2 Saturation 98 Oxygen O2 Source Room air - Labs Labs: Laboratory Tests 07/14/23 13:28 Urine Color YELLOW Urine Clarity CLEAR Urine pH 6.0 Ur Specific [place] 1.020 Urine Protein NEGATIVE Urine Glucose (UA) NEGATIVE Urine Ketones NEGATIVE Urine Occult Blood NEGATIVE Urine Nitrite NEGATIVE Urine Bilirubin NEGATIVE Urine Urobilinogen 0.2 (NORMAL) Ur Leukocyte Esterase SMALL H Urine RBC None Seen Urine WBC 6-10 H Ur Squamous Epith Cells RARE Squamous Urine Bacteria Rare Ur Microscopic Review INDICATED Urine Culture Comments INDICATED PD Medical Decision Making - ED course Complexity details: reviewed results, re-evaluated patient, considered differential, d/w patient ED course: The patient's urinalysis was found to be positive. She was started on Bactrim here in the emergency department and a prescription for the same was electronically transmitted to the [facility] in [place] at her request. We have discussed the usual indications for return. Departure - Departure Disposition: 01 Home, Self Care Clinical Impression: Urinary tract infection Qualifiers: Urinary tract infection type: acute cystitis Hematuria presence: without hematuria Qualified Code(s): N30.00 - Acute cystitis without hematuria Condition: Stable Instructions: ED UTI Cystitis Female Prescriptions: Sulfamethox/Trimeth 800/160 [Bactrim Ds 800/160] 1 each PO BID #14 tablet Comments: You have been found to have a urinary tract infection today. You have been given your first dose of antibiotics here in the emergency department, but will need to take antibiotics for a week after this. A prescription for the medication has been electronically transmitted to the [facility] in [place]. Please pick your antibiotics up today so you can take your next dose first thing in the morning tomorrow. Be sure you are also get plenty of water to drink. Please follow-up with your primary doctor as needed.
[2023-07-14] MEDS: SULFAMETH/TRIMETH DS 800/160 MG TABLET PO STA (15:10)
== END 2023-07-14 15:20 | disposition home or self-care (01) ==
LOC: ED 14:11
DX: N30.00 Acute cystitis without hematuria (principal)
CPT/HCPCS: 81001; 81003; 87086; 99283

== ENCOUNTER 2023-07-30 12:57 | Outpatient (CLI) | payer MEDICARE, OTHER ==
--- NOTE | 2023-07-30 13:25 | SLEEP CARE CONSULTATION ---
Information from patient questionnaire entered by Lisbet Hawkins. I have reviewed and concur with the information entered by Lisbet Hawkins. This document represents the service I personally performed and the decisions made by , Krystal Clarke ARNP. History of Present Illness Service Date and Time: 07/30/2023 1257 Previous diagnosis: Severe, Obstructive Sleep Apnea-Hypopnea Syndrome AHI: 33.7 (03/2023) Reason for follow up: first compliance Equipment type: CPAP (RESMED Airsense 10; s/u 05/2023) Equipment obtained from: [email or web address] (getting supplies) Mask style: Nasal pillows Backup mask available: Yes (old mask) Last cushion change: 1 month or so Prior sleep studies: Yes Year and Where: [facility] Type of Sleep Study: Polysomnography (COMPLETED ON 04/05/23) HPI additional information: BERHANE CODY was diagnosed to have severe, AHI 33.7, obstructive sleep apnea- hypopnea syndrome and returned today for CPAP therapy first compliance follow- up. Sleep Study - Results Type of Sleep Study: Polysomnography (COMPLETED ON 04/05/23) Prior sleep studies: Yes Year and Where: [facility] CPAP Compliance Data - Data Reviewed with Patient Average duration of nightly device use: 8 HRS 31 MINS Compliance rate %: 73 (05/06/23-06/04/23; days used) Current pressure setting (cmH2O): 7-14 Average residual AHI: 0.4 Central apnea: 0.1 Obstructive apnea: 0.1 Average large leak: 1 L/min Subjective Patient concerns: reports: mask leak noise, nasal congestion, other (headaches, occasionally). denies: aerophagia, mask discomfort, air blowing in eyes, condensation in mask/hose, dry mouth, nose, throat, epistaxis Observed to snore while using device: No Current pressure setting perceived as: comfortable On therapy, patient: reports: sleeping better, awakening more refreshed, being more awake and alert during the day, more rested overall. denies: drowsiness while driving Initial [place] Sleepiness Scale score: 8 (03/11/2023) Current [place] Sleepiness Scale score: 8 (07/30/23) Allergies and Home Medications Known drug allergies: Yes (as listed) Drug allergies reviewed: Yes Home medication list reviewed: Yes (no changes) Allergy and home medication list: Allergies zolpidem [From Ambien] Adverse Reaction (Mild, Verified 07/29/23 10:51) Hallucinations Review of Systems Review of systems same as previous: Yes (NO CHANGE) Physical Exam Vital signs obtained and entered by: LISBET Fulton MA Blood Pressure: 110/62 (RIGHT ARM) Cuff size: regular Heart Rate: 59 O2 Saturation: 98 Height: 5 ft 5 in Weight: 164 lb 12.8 oz Body Mass Index: 27.4 BMI Classification: Overweight Impression and Plan 1. Obstructive Sleep Apnea-Hypopnea Syndrome, severe, with good treatment compliance and good apnea control. On CPAP therapy, the patient has better sleep quality and is more rested overall. She is liking her new CPAP. She is comfortable with the pressure and has significant improvement of her sleep apnea. She has had some nasal congestion with using her CPAP. Nasal congestion can be reduced with increasing the CPAP humidity. The heated hose can be adjusted higher if condensation with higher humidity setting. She may also use a nasal moisturizer to reduce nasal dryness and congestion. She says she does have her mask leaking when she turns on her side. I showed her some examples of CPAP pillows and explained how they can be useful. She voiced understanding and wrote down information to look for online. I will followup with her in about 3 months. Patient's apnea severity and rationale for treatment to reduce apnea, improve sleep quality and reduce cardiovascular and cerebrovascular events was reviewed. I also reviewed the benefit of consistent device use of CPAP for gastric reflux, depression/anxiety and mood disorder. 2. Overweight, unspecified. Currently patients BMI is 27.4. Obesity increases the risk of apnea, CPAP pressure requirements and overall health risks especially cardiovascular and diabetes. Thus patient is advised to lose weight. * Continue auto CPAP pressure at 7-14 cmH2O * Notify me if snoring with mask or feeling that the pressure is too much or too little * Attempt to lose weight * Call this office if any problems using CPAP * Return for follow up in 3 months, or sooner if concerns arise Counseling Topics: Spare mask, Weight loss health impact Follow up with Sleep Care in: 3 months Visit Type: In Office Time Spent with Patient (minutes): 20 Provider Statement: I spent 100% of the Face to Face Visit with the patient with greater than 50% spent counseling the patient and coordination of care.
--- NOTE | 2023-07-30 13:26 | Sleep Patient Instructions ---
Sleep Center Visit Summary - Patient Visit Information Reason for Visit: First Compliance visit - Patient Instructions Additional Instructions: You were here for follow up of CPAP therapy. You will be continued on CPAP therapy with pressure at 7-14 cmH2O. You should follow up with sleep care in 3 months. You may contact us sooner for any questions or concerns. - Clinic Information Contact: [facility] [address] [place] [id number] [email or web address] T: [phone]
[2023-07-30 13:51] VITALS: BP 110/62; O2SAT 98
== END 2023-07-30 12:58 | disposition home or self-care (01) ==
LOC: SC 12:57
PROVIDERS: ATTEND Nurse Practitioner Family
DX: G47.33 Obstructive sleep apnea (adult) (pediatric) (principal); E66.3 Overweight; Z68.27 Body mass index [BMI] 27.0-27.9, adult
CPT/HCPCS: 99213; G0463; 99212

== ENCOUNTER 2023-08-07 09:12 | Outpatient (CLI) | payer MEDICARE, OTHER ==
[2023-08-07 13:27] LABS: ALBUMIN 4.6 g/dL (3.2-5.5); ALBUMIN/GLOBULIN RATIO 1.7 (1.0-2.2); ALKALINE PHOSPHATASE 68 IU/L (42-121); ALT ALANINE AMINOTRANSFERASE 17 IU/L (10-60); AST ASPARTATE AMINOTRANSFERASE 20 IU/L (10-42); BILIRUBIN,TOTAL 1.2 mg/dL (0.2-1.0); BUN - BLOOD UREA NITROGEN 23 mg/dL (6-20); CALCIUM 10.1 mg/dL (8.5-10.3); CARBON DIOXIDE - CO2 28 mmol/L (21-32); CHLORIDE 105 mmol/L (101-111); CREATININE 0.9 mg/dL (0.6-1.3); CRP - C-REACTIVE PROTEIN < 0.5 mg/dL (<0.5); GFR - MDRD 62 (>89); GLUCOSE 98 mg/dL (74-104); POTASSIUM 4.1 mmol/L (3.5-4.5); SODIUM 140 mmol/L (135-145); TOTAL PROTEIN 7.3 g/dL (6.4-8.9)
[2023-08-07 18:09] LABS: BILIRUBIN,URINE NEGATIVE (NEGATIVE); GLUCOSE, URINE (UA) NEGATIVE (NEGATIVE); KETONES,URINE (UA) NEGATIVE (NEGATIVE); LEUKOCYTE ESTERASE, URINE NEGATIVE (NEGATIVE); NITRITE,URINE NEGATIVE (NEGATIVE); OCCULT BLOOD,URINE NEGATIVE (NEGATIVE); PH,URINE 6.5 PH (5.0-7.5); PROTEIN,URINE NEGATIVE (NEGATIVE); UROBILINOGEN,URINE 0.2 (NORMAL) E.U./dL (NORMAL)
[2023-08-07 18:20] LABS: CLARITY,URINE CLEAR (CLEAR)
[2023-08-07 18:40] LABS: BACTERIA,URINE Few /HPF (None Seen); RBC,URINE 0-5 /HPF (0-5); SQUAMOUS EPITHELIAL CELL,UR RARE Squamous (<= Few); WBC,URINE 0-3 /HPF (0-5)
[2023-08-10 16:08] LABS: A/G RATIO 1.3 (0.7-1.7); ALBUMIN 3.8 g/dL (2.9-4.4); ALPHA-1-GLOBULIN 0.2 g/dL (0.0-0.4); ALPHA-2-GLOBULIN 0.7 g/dL (0.4-1.0); PROTEIN TOTAL 6.8 g/dL (6.0-8.5)
== END 2023-08-07 09:13 | disposition home or self-care (01) ==
LOC: LAB.N 09:12
PROVIDERS: ATTEND Internal Medicine
DX: M31.6 Other giant cell arteritis (principal)
CPT/HCPCS: 36415; 80053; 81001; 84155; 84165; 85651; 86140; 87086

== ENCOUNTER 2023-08-10 14:05 | Outpatient (CLI) | payer MEDICARE, OTHER | END 2023-08-10 14:06 | disposition home or self-care (01) | LOC: LAB.R 14:05 | PROVIDERS: ATTEND Nurse Practitioner | DX: D48.5 Neoplasm of uncertain behavior of skin (principal) | CPT/HCPCS: 87070; 87205 ==

== ENCOUNTER 2023-10-23 11:26 | Outpatient (CLI) | payer MEDICARE, OTHER | END 2023-10-23 11:27 | disposition home or self-care (01) | LOC: LAB 11:26 | PROVIDERS: ATTEND Ophthalmology | DX: H57.11 Ocular pain, right eye (principal) | CPT/HCPCS: 36415; 85651; 86140 ==

== ENCOUNTER 2023-11-13 09:05 | Outpatient (CLI) | payer MEDICARE, OTHER ==
--- NOTE | 2023-11-13 09:38 | Sleep Patient Instructions ---
Sleep Center Visit Summary - Patient Visit Information Reason for Visit: 3-month follow-up - Patient Instructions Additional Instructions: You were here for follow up of CPAP therapy. You will be continued on CPAP therapy with pressure at 7-14 cmH2O. You should follow up with sleep care in 6 months. You may contact us sooner for any questions or concerns. - Clinic Information Contact: [facility] [address] [place] [address] [email or web address] T: [phone]
--- NOTE | 2023-11-13 09:41 | SLEEP CARE CONSULTATION ---
Information from patient questionnaire entered by Lisbet Hawkins. I have reviewed and concur with the information entered by Lisbet Hawkins. This document represents the service I personally performed and the decisions made by , Krystal Clarke ARNP. History of Present Illness Service Date and Time: 11/13/2023904 Previous diagnosis: Severe, Obstructive Sleep Apnea-Hypopnea Syndrome AHI: 33.7 (04/05/23) Reason for follow up: three month (f/u) Equipment type: CPAP (RESMED AIRSENSE 10 AUTO SET SET UP DATE 05/06/23) Equipment obtained from: [email or web address] (getting supplies) Mask style: Nasal pillows Backup mask available: Yes (old mask) Last cushion change: 1 month Prior sleep studies: Yes Year and Where: [facility] Type of Sleep Study: Polysomnography (COMPLETED ON 04/05/23) HPI additional information: BERHANE CODY was diagnosed to have severe, AHI 33.7, obstructive sleep apnea- hypopnea syndrome and returned today for CPAP therapy three month follow-up. Sleep Study - Results Type of Sleep Study: Polysomnography (COMPLETED ON 04/05/23) Prior sleep studies: Yes Year and Where: [facility] CPAP Compliance Data - Data Reviewed with Patient Average duration of nightly device use: 7 HRS 25 MINS Compliance rate %: 68 (08/13/23-11/10/23; 67/90 days used; 70 % in last 30 days) Current pressure setting (cmH2O): 7-14 Average residual AHI: 0.3 Central apnea: 0.1 Obstructive apnea: 0.1 Hypopnea: 0.2 Average large leak: 2.4 L/min Subjective Missed days of use due to: reports: travel Patient concerns: denies: aerophagia, mask discomfort, air blowing in eyes, mask leak noise, condensation in mask/hose, nasal congestion, dry mouth, nose, throat, epistaxis Observed to snore while using device: Yes (sometimes) Current pressure setting perceived as: comfortable On therapy, patient: reports: sleeping better, awakening more refreshed, being more awake and alert during the day, more rested overall. denies: drowsiness while driving Initial [place] Sleepiness Scale score: 8 (03/11/2023) Current [place] Sleepiness Scale score: 6 () Allergies and Home Medications Known drug allergies: Yes (as listed) Drug allergies reviewed: Yes Home medication list reviewed: Yes (no changes) Allergy and home medication list: Allergies zolpidem [From Ambien] Adverse Reaction (Mild, Verified 11/11/23 13:58) Hallucinations Review of Systems Review of systems same as previous: Yes (NO CHANGE) Physical Exam Vital signs obtained and entered by: LISBET Fulton MA Blood Pressure: 86/41 (RIGHT ARM) Cuff size: wrist (RIGHT WRIST 81/54) Heart Rate: 62 O2 Saturation: 96 Height: 5 ft 5 in Weight: 155 lb 12.8 oz Weight change since last visit: 9 lbs loss Body Mass Index: 25.9 BMI Classification: Overweight Impression and Plan 1. Obstructive Sleep Apnea-Hypopnea Syndrome, severe, with good treatment compliance and good apnea control. On CPAP therapy, the patient has better sleep quality and is more rested overall. She has significant improvement of her sleep apnea and is comfortable with CPAP therapy. She denies any issues with mask use. Her compliance was affected by travel mostly but overall she is doing well. Patient's apnea severity and rationale for treatment to reduce apnea, improve sleep quality and reduce cardiovascular and cerebrovascular events was reviewed. I also reviewed the benefit of consistent device use of CPAP for gastric reflux, depression, anxiety and mood disorder. 2. Overweight, unspecified. Currently patients BMI is 25.9. She has lost weight. Obesity increases the risk of apnea, CPAP pressure requirements and overall health risks especially cardiovascular and diabetes. Thus patient is advised to continue to try to lose weight. * Continue auto CPAP pressure at 7-14 cmH2O * Notify me if snoring with mask or feeling that the pressure is too much or too little * Continue to try to lose weight * Call this office if any problems using CPAP * Return for follow up in 6 months, or sooner if concerns arise Counseling Topics: Spare mask, Weight loss health impact Follow up with Sleep Care in: 6 months Visit Type: In Office Time Spent with Patient (minutes): 14 Provider Statement: I spent 100% of the Face to Face Visit with the patient with greater than 50% spent counseling the patient and coordination of care.
[2023-11-13 09:46] VITALS: BP 86/41; O2SAT 96
== END 2023-11-13 09:06 | disposition home or self-care (01) ==
LOC: SC 09:05
PROVIDERS: ATTEND Nurse Practitioner Family
DX: G47.33 Obstructive sleep apnea (adult) (pediatric) (principal)
CPT/HCPCS: 99212; G0463

== ENCOUNTER 2024-03-24 12:34 | Emergency (ER) | payer MEDICARE, OTHER ==
--- NOTE | 2024-03-24 12:55 | ED Physician Documentation ---
History of Present Illness - Stated complaint Stated Complaint: MIGRAINE,NAUSEA - Chief complaint Chief Complaint: Neuro - Additonal information Additional information: 68-year-old female with history of early signs of dementia, sleep apnea with CPAP use, chronic headaches, GERD, anxiety presents emergency department for increased anxiety. Patient was seen by her primary care provider Dr. Javier yesterday and advised the patient to follow-up with her neurologist to [facility] outpatient for further evaluation of her concerns for recent uptick in anxiety. Patient had a normal MRI in 2021 less than 2 years ago. She has no expressive aphasia she is completely neurologically intact no unilateral weakness. Patient's says that about 2 to 3 days ago she had a severe anxiety attack which is why they went to their primary care provider's office yesterday. She has referral to a neuropsychiatrist for further evaluation of this recent anxiety that the patient is experiencing. Patient endorses any chronic right-sided headache that has not changed she also reports that recently when she looks outside at the clouds they appear to be pink-tinged but when she is inside white appears to be the color white. No recent illnesses no fevers or chills no recent head trauma or injury. 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 : None HEENT: None Psych: Anxiety Musculoskeletal: Other Derm: Psoriasis - Past Surgical History Past Surgical History: Yes General: Appendectomy, Colonoscopy Ortho: Carpal Tunnel surgery /REAL ESTATE RECRUITER: section, Hysterectomy, Mastectomy, Breast implants - Present Medications Home Medications: Ambulatory Orders Medication Instructions Recorded Confirmed Cholecalciferol (Vitamin D3) 4,000 unit PO DAILY 03/22/14 03/21/24 [Vitamin D3] Multivit-Min/FA/Lycopene/Lut 1 each PO DAILY 03/22/14 03/21/24 [Centrum Silver Tablet] Sulfamethox/Trimeth 800/160 1 each PO BID #14 tablet 07/14/23 03/21/24 [Bactrim Ds 800/160] - Allergies Allergies/Adverse Reactions: Allergies Allergy/AdvReac Type Severity Reaction Status Date / Time zolpidem [From Ambien] AdvReac Mild Hallucinati Verified 03/24/24 12:50 ons - Social History Does the pt smoke?: No Smoking Status: Never smoker Does the pt drink ETOH?: No Does the pt have substance abuse?: Yes - Immunizations Immunizations are current?: Yes - POLST Patient has POLST: No PD ED PE NORMAL - Vitals Vital signs reviewed: Yes - General General: Alert and oriented X 3, No acute distress, Well developed/nourished - HEENT HEENT: Atraumatic, PERRL, EOMI, Moist mucous membranes - Neck Neck: Supple, no meningeal sign - Cardiac Cardiac: RRR - Respiratory Respiratory: No respiratory distress, Clear bilaterally - Abdomen Abdomen: Normal bowel sounds, Soft, Non tender - Derm Derm: Normal color, Warm and dry, No rash - Extremities Extremities: No edema, No calf tenderness / cord - Neuro Neuro: Alert and oriented X 3, 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 No: Weakness, Abnormal sensation Results - Vitals Vitals: Vital Signs - 24 hr 03/24/24 03/24/24 03/24/24 12:44 13:38 15:00 Temperature 36.5 C Heart Rate 69 67 72 Respiratory 16 19 16 Rate Blood Pressure 133/68 H 121/62 122/74 O2 Saturation 100 100 99 03/24/24 16:19 Temperature Heart Rate 65 Respiratory 13 Rate Blood Pressure 122/74 O2 Saturation 99 Oxygen O2 Source Room air - Labs Labs: Laboratory Tests 03/24/24 03/24/24 03/24/24 13:11 13:11 13:11 WBC 5.9 RBC 4.12 L Hgb 13.1 Hct 39.2 MCV 95.1 MCH 31.8 H MCHC 33.4 RDW 12.4 Plt Count 282 MPV 9.6 Neut # (Auto) 3.6 Lymph # (Auto) 1.7 [place] # (Auto) 0.5 Eos # (Auto) 0.0 Baso # (Auto) 0.0 Absolute Nucleated RBC 0.00 Nucleated RBC % 0.0 Sodium 137 Potassium 3.7 Chloride 104 Carbon Dioxide 27 Anion Gap 6.0 BUN 15 Creatinine 0.7 Estimated GFR (MDRD) 83 L Glucose 136 H Calcium 9.7 Magnesium 1.8 Total Bilirubin 0.7 AST 19 ALT 16 Alkaline Phosphatase 65 Total Protein 7.0 Albumin 4.6 Globulin 2.4 Albumin/Globulin Ratio 1.9 Lipase 22 TSH Urine Color YELLOW Urine Clarity CLEAR Urine pH 6.0 Ur Specific [place] 1.020 Urine Protein NEGATIVE Urine Glucose (UA) NEGATIVE Urine Ketones NEGATIVE Urine Occult Blood NEGATIVE Urine Nitrite NEGATIVE Urine Bilirubin NEGATIVE Urine Urobilinogen 0.2 (NORMAL) Ur Leukocyte Esterase TRACE H Urine RBC 0-5 Urine WBC 0-3 Ur Squamous Epith Cells FEW Squamous Urine Bacteria Few Ur Microscopic Review INDICATED Urine Culture Comments INDICATED 03/24/24 13:11 WBC RBC Hgb Hct MCV MCH MCHC RDW Plt Count MPV Neut # (Auto) Lymph # (Auto) [place] # (Auto) Eos # (Auto) Baso # (Auto) Absolute Nucleated RBC Nucleated RBC % Sodium Potassium Chloride Carbon Dioxide Anion Gap BUN Creatinine Estimated GFR (MDRD) Glucose Calcium Magnesium Total Bilirubin AST ALT Alkaline Phosphatase Total Protein Albumin Globulin Albumin/Globulin Ratio Lipase TSH 0.80 Urine Color Urine Clarity Urine pH Ur Specific [place] Urine Protein Urine Glucose (UA) Urine Ketones Urine Occult Blood Urine Nitrite Urine Bilirubin Urine Urobilinogen Ur Leukocyte Esterase Urine RBC Urine WBC Ur Squamous Epith Cells Urine Bacteria Ur Microscopic Review Urine Culture Comments - Rads (name of study) head CT without Relevant Findings:: Final report received, EMP independent interpretation of test, Other (No intracranial hemorrhages or abnormalities) CT head neck angio Relevant Findings:: Final report received, EMP independent interpretation of test, Other (No arterial abnormalities) PD Medical Decision Making - ED course ED course: 68-year-old female presents emergency department for concerns of chronic headache, and recent uptick in anxiety And recent anxiety attack. Patient was seen by her primary care provider Dr. Willson Yesterday and patient's was adamant that I speak with him about doing an emergent MRI. When I spoke with patient's primary care provider he said that yesterday when patient was in for a routine visit they did not ask for an MRI and he would be more than happy to order an outpatient MRI for further evaluation of the patient's chronic headaches and mood changes. She is completely neurologically intact for me here in the emergency department NIH score of 0 and I do not believe that patient needs an emergent MRI. Labs are also complete for further evaluation and are unremarkable. Urinalysis has trace leukocytes she has no dysuria urinary frequency or pelvic pain so we will send urine for cultures and start her on antibiotics if it is warranted. Head CT as well as Angio head and neck was complete and no acute abnormal findings are visualized. Patient has an appointment with [facility] neurology coming up in May. Return precautions given all questions answered patient safe for discharge at this time. Departure - Departure Disposition: 01 Home, Self Care Clinical Impression: Headache Qualifiers: Headache chronicity pattern: unspecified pattern Condition: Good Instructions: ED Cephalgia Unspecified Comments: We have completed labs and a urinalysis and we are not seeing any unremarkable findings at this point in time. We did send urine to the lab for cultures we will call you in 2 to 3 days if cultures come back positive for anything if you need to start antibiotics but at this point in time I do not believe antibiotics are warranted. We have completed a head CT as well as a CT neck and head with angio and we are not seeing any acute abnormal findings at this point time. I have copied and pasted the CT results below for you. I spoke with your primary care provider Dr. Javier and he is more than willing to order an outpatient MRI for you for further evaluation. You can also call [facility] and see if you are able to get on the cancellation list for a sooner visit. PT NAME: BERHANE CODY MR#: [id number] REG ER/ED AGE: 68 CI DT/TM: 03/24/24 PCP: Fernando Javier MD : 1955 ATT: SEX: F ORD: Nora Bermudezelias [facility] EXAM: [id number] CT/HNA PROCEDURE: Angio Head/Neck INDICATIONS: right sided headache TECHNIQUE: After the administration of intravenous contrast, 1 mm thick sections acquired from the aortic arch through the [place] of [place]. 3-dimensional xczxmvt-bbgdfuddc-kozveurqkp (MIP) and/or volume rendering reformats were acquired of the central intracranial vasculature and neck separately. For radiation dose reduction, the following was used: automated exposure control, adjustment of mA and/or kV according to patient size. CONTRAST: Omni 300 80ml COMPARISON: CT head from the same date. FINDINGS: Image quality: Diagnostic. HEAD CT: CSF Spaces: Basal cisterns are patent. No extra-axial fluid collections. Ventricles are normal in size and shape. Brain: No significant abnormality is seen for scanning technique. Skull and face: Calvarium and visualized facial bones appear intact, without suspicious lesions. Sinuses: Visualized sinuses and mastoids are clear. HEAD CT ANGIOGRAPHY: Anterior circulation: Intracranial internal carotid arteries are normal in size and flow. The flow within the paired anterior cerebral arteries is normal and symmetric. The flow within the middle cerebral arteries is normal and symmetric. The anterior communicating artery is seen. No aneurysms are seen. Posterior circulation: Visualized portions of the vertebral arteries demonstrate normal caliber, and join to form a normal appearing basilar artery. Flow within the posterior cerebral arteries is normal and symmetric. No aneurysms are seen. NECK CT ANGIOGRAPHY: Carotid system: The great vessels demonstrate a conventional anatomy as they arise from the aortic arch. The origins of the common carotid arteries appear patent. The common carotid arteries de monstrate normal caliber and courses. The bifurcation regions are both widely patent. The internal carotid arteries demonstrate normal calibers and courses. Posterior circulation: The origins of the vertebral arteries both appear widely patent. The more superior extracranial portions of both vertebral arteries also demonstrate normal courses and calibers. They join to form a normal appearing basilar artery. Soft tissues: Visualized neck soft tissues demonstrate no suspicious abnormalities. Bones: No suspicious bony lesions. Visualized cervical spine appears normally aligned. IMPRESSION: No significant intracranial arterial abnormality is seen. No significant abnormality is seen within the arteries of the neck. The estimate of stenosis included in the report of the imaging study was calculated using the NASCET method PT NAME: BERHANE CODY MR#: [id number] REG ER/ED AGE: 68 CI DT/TM: 03/24/24 PCP: Fernando Javier MD : 1955 ATT: SEX: F ORD: Nora [facility] [employer] [employer] EXAM: [id number] CT/HEADWO ([id number]) PROCEDURE: Head WO INDICATIONS: right sided headache and vision changes TECHNIQUE: Noncontrast 4.5 mm thick angled axial sections acquired from the foramen magnum to the vertex. For radiation dose reduction, the following was used: automated exposure control, adjustment of mA a nd/or kV according to patient size. COMPARISON: CT head without contrast dated 08/10/2018. FINDINGS: Image quality: Excellent. CSF spaces: Basal cisterns are patent. No extra-axial fluid collections. Ventricles are normal in size and shape. Brain: No midline shift. No intracranial masses or hemorrhage. Seals-white matter interface is normal. There is age-related volume loss and mild periventricular white matter change consistent with small vessel ischemic change. Skull and face: Calvarium and visualized facial bones are intact, without suspicious lesions. Sinuses: Visualized sinuses and mastoids are clear. IMPRESSION: No acute intracranial pathology. Forms: PCP List Discharge Date/Time: 03/24/24 16:21
[2024-03-24 13:43] LABS: BILIRUBIN,URINE NEGATIVE (NEGATIVE); GLUCOSE, URINE (UA) NEGATIVE (NEGATIVE); KETONES,URINE (UA) NEGATIVE (NEGATIVE); LEUKOCYTE ESTERASE, URINE TRACE (NEGATIVE); NITRITE,URINE NEGATIVE (NEGATIVE); OCCULT BLOOD,URINE NEGATIVE (NEGATIVE); PROTEIN,URINE NEGATIVE (NEGATIVE); UROBILINOGEN,URINE 0.2 (NORMAL) E.U./dL (NORMAL)
[2024-03-24 13:44] LABS: BASOPHILS % (AUTO) 0.7 %; EOSINOPHILS % (AUTO) 0.7 %; HCT - HEMATOCRIT 39.2 % (37.0-47.0); HGB - HEMOGLOBIN 13.1 g/dL (12.0-16.0); LYMPHOCYTES # (AUTO) 1.7 10^3/uL (1.5-3.5); LYMPHOCYTES % (AUTO) 28.2 %; MEAN CORPUSCULAR HEMOGLOBIN 31.8 pg (27.0-31.0); MEAN CORPUSCULAR HGB CONC 33.4 g/dL (32.0-36.0); MEAN CORPUSCULAR VOLUME 95.1 fL (81.0-99.0); MEAN PLATELET VOLUME 9.6 fL (7.9-10.8); MONOCYTES # (AUTO) 0.5 10^3/uL (0.0-1.0); MONOCYTES % (AUTO) 7.8 %; NEUTROPHILS # (AUTO) 3.6 10^3/uL (1.5-6.6); NEUTROPHILS % (AUTO) 62.1 %; PLT - PLATELET COUNT 282 10^3/uL (130-450); RED BLOOD COUNT 4.12 10^6/uL (4.20-5.40); RED CELL DISTRIBUTION WIDTH 12.4 % (12.0-15.0); WHITE BLOOD COUNT 5.9 x10^3/uL (4.8-10.8)
[2024-03-24 13:45] LABS: CLARITY,URINE CLEAR (CLEAR)
[2024-03-24 13:57] LABS: ALBUMIN 4.6 g/dL (3.2-5.5); ALBUMIN/GLOBULIN RATIO 1.9 (1.0-2.2); BILIRUBIN,TOTAL 0.7 mg/dL (0.2-1.0); CALCIUM 9.7 mg/dL (8.5-10.3); CREATININE 0.7 mg/dL (0.6-1.3); MAGNESIUM 1.8 mg/dL (1.7-2.3); POTASSIUM 3.7 mmol/L (3.5-4.5)
[2024-03-24 14:00] LABS: BACTERIA,URINE Few /HPF (None Seen); RBC,URINE 0-5 /HPF (0-5); SQUAMOUS EPITHELIAL CELL,UR FEW Squamous (<= Few); WBC,URINE 0-3 /HPF (0-5)
[2024-03-24] MEDS ORDERED: iohexoL-300 100 ML VIAL ONE (14:52)
[2024-03-24 15:12] VITALS: BP 122/74; O2SAT 99
--- NOTE | 2024-03-24 15:51 | CT Report ---
PROCEDURE: Head WO INDICATIONS: right sided headache and vision changes TECHNIQUE: Noncontrast 4.5 mm thick angled axial sections acquired from the foramen magnum to the vertex. For r adiation dose reduction, the following was used: automated exposure control, adjustment of mA and/or kV according to patient size. COMPARISON: CT head without contrast dated 08/10/2018. FINDINGS: Image quality: Excellent. CSF spaces: Basal cisterns are patent. No extra-axial fluid collections. Ventricles are normal in size and shape. Brain: No midline shift. No intracranial masses or hemorrhage. Seals-white matter interface is norm al. There is age-related volume loss and mild periventricular white matter change consistent with sm all vessel ischemic change. Skull and face: Calvarium and visualized facial bones are intact, without suspicious lesions. Sinuses: Visualized sinuses and mastoids are clear. IMPRESSION: No acute intracranial pathology. Reviewed by: Davon Lewis MD on 03/24/2024 3:50 PM PDT Approved by: Davon Lewis MD on 03/24/2024 3:50 PM PDT Station ID: [id number]
--- NOTE | 2024-03-24 15:53 | CT Report ---
PROCEDURE: Angio Head/Neck INDICATIONS: right sided headache TECHNIQUE: After the administration of intravenous contrast, 1 mm thick sections acquired from the aortic arch t hrough the [place] of [place]. 3-dimensional stqvfaf-vaovagwsd-tvgkkdcjhx (MIP) and/or volume renderin g reformats were acquired of the central intracranial vasculature and neck separately. For radiation dose reduction, the following was used: automated exposure control, adjustment of mA and/or kV acco rding to patient size. CONTRAST: Omni 300 80ml COMPARISON: CT head from the same date. FINDINGS: Image quality: Diagnostic. HEAD CT: CSF Spaces: Basal cisterns are patent. No extra-axial fluid collections. Ventricles are normal in size and shape. Brain: No significant abnormality is seen for scanning technique. Skull and face: Calvarium and visualized facial bones appear intact, without suspicious lesions. Sinuses: Visualized sinuses and mastoids are clear. HEAD CT ANGIOGRAPHY: Anterior circulation: Intracranial internal carotid arteries are normal in size and flow. The flow within the paired anterior cerebral arteries is normal and symmetric. The flow within the middle cer ebral arteries is normal and symmetric. The anterior communicating artery is seen. No aneurysms are seen. Posterior circulation: Visualized portions of the vertebral arteries demonstrate normal caliber, and join to form a normal appearing basilar artery. Flow within the posterior cerebral arteries is norm al and symmetric. No aneurysms are seen. NECK CT ANGIOGRAPHY: Carotid system: The great vessels demonstrate a conventional anatomy as they arise from the aortic a rch. The origins of the common carotid arteries appear patent. The common carotid arteries demonstr ate normal caliber and courses. The bifurcation regions are both widely patent. The internal caroti d arteries demonstrate normal calibers and courses. Posterior circulation: The origins of the vertebral arteries both appear widely patent. The more rodney perior extracranial portions of both vertebral arteries also demonstrate normal courses and calibers. They join to form a normal appearing basilar artery. Soft tissues: Visualized neck soft tissues demonstrate no suspicious abnormalities. Bones: No suspicious bony lesions. Visualized cervical spine appears normally aligned. IMPRESSION: No significant intracranial arterial abnormality is seen. No significant abnormality is seen within the arteries of the neck. The estimate of stenosis included in the report of the imaging study was calculated using the NASCET method Reviewed by: Davon Lewis MD on 03/24/2024 3:52 PM PDT Approved by: Davon Lewis MD on 03/24/2024 3:52 PM PDT Station ID: [id number]
[2024-03-24] MEDS: iohexoL-300 100 ML VIAL IVP ONE (16:41)
--- NOTE | 2024-03-25 11:32 | ED Physician Documentation ---
ED Addendum - Addendum Addendum: 03/25/24 11:32 Urine culture reviewed. She had no urinary complaints per the chart, she did not have a white count. And low colony count would suggest this is asymptomatic colonization and no treatment is needed.
== END 2024-03-24 16:21 | disposition home or self-care (01) ==
LOC: ED 12:34
DX: R51.9 Headache, unspecified (principal); F03.90 Unspecified dementia, unspecified severity, without behavioral disturbance, psychotic disturbance, mood disturbance, and anxiety; G47.30 Sleep apnea, unspecified; F41.9 Anxiety disorder, unspecified; Z85.3 Personal history of malignant neoplasm of breast; Z98.82 Breast implant status
CPT/HCPCS: 36415; 70450; 70496; 70498; 80053; 81001; 83690; 83735; 84443; 85025; 87077; 87086; 99283; 99284; Q9967; 81003